=== PATIENT | female | born 1950 | race Caucasian/White ===

== ENCOUNTER → 2016-09-27 | Outpatient (CLI) | payer OTHER ==
[2015-09-07 15:26] VITALS: BP 126/65
[~2016-09-27] MED LIST: DOXY100T PO; GLIM2TAB2 PO; IRBE1TAB PO; METF500T4 PO; METO25TA4 PO; SIMV20TA3 PO
[2016-09-27 10:05] LABS: ALBUMIN 3.8 g/dL (3.4-5.0); CALCIUM 8.9 mg/dL (8.5-10.1); CHOLESTEROL/HDL RATIO 4.5; GFR 55.8; POTASSIUM 4.2 mmol/L (3.5-5.1); TOTAL BILIRUBIN 0.5 mg/dL (0.2-1.0); TOTAL PROTEIN 7.7 g/dL (6.4-8.2)
== END | disposition home or self-care (01) ==
LOC: LAB 09:01
PROVIDERS: ATTEND Internal Medicine
DX: I10 Essential (primary) hypertension (principal); E11.9 Type 2 diabetes mellitus without complications; E78.5 Hyperlipidemia, unspecified
CPT/HCPCS: 36415; 80053; 80061; 82550; 83036; 84443

== ENCOUNTER → 2016-09-29 | Outpatient (CLI) | payer OTHER ==
[2015-09-07 15:26] VITALS: BP 126/65
--- NOTE | 2016-09-29 08:53 | RAD ---
DATE: 09/29/2016 EXAM: DIGITAL SCREEN BILAT W/CAD HISTORY: Routine screening COMPARISON: 08/04/2015 This study was interpreted with the benefit of Computerized Aided Detection (CAD). FINDINGS: The breasts are predominantly fatty replaced. No new or enlarging breast densities are seen. Minimal benign type calcification is present. No suspicious microcalcifications have developed. IMPRESSION: Stable mammograms without evidence of malignancy. BI-RADS CATEGORY: 1 NEGATIVE RECOMMENDED FOLLOW-UP: 12M 12 MONTH FOLLOW-UP PQRS compliance statement: Patient information was entered into a reminder system with a target due date for the next mammogram. Mammography is a sensitive method for finding small breast cancers, but it does not detect them all and is not a substitute for careful clinical examination. A negative mammogram does not negate a clinically suspicious finding and should not result in delay in biopsying a clinically suspicious abnormality. "Our facility is accredited by the [employer] Mammography Program."
== END | disposition home or self-care (01) ==
LOC: MAMMO 08:19
PROVIDERS: ATTEND Internal Medicine
DX: Z12.31 Encounter for screening mammogram for malignant neoplasm of breast (principal)
CPT/HCPCS: G0202; 77067

== ENCOUNTER → 2016-09-30 | Outpatient (CLI) | payer OTHER ==
[2015-09-07 15:26] VITALS: BP 126/65
--- NOTE | 2016-09-30 09:26 | KCIC ---
PROCEDURE Bone density. HISTORY Postmenopausal, estrogen deficiency. COMPARISON None. FINDINGS Dual photon densitometry of the lumbar spine and left proximal femur is performed. Bone mineral density values are measured in grams per cm2. Lumbar spine, L1-L4, total bone mineral density 1.358, T-score 2.8, Z-score 4.5. Left total femur bone mineral density 1.097, T-score 1.3, Z-score 2.4. World Health Organization criteria for bone mineral density interpretation classify patient's as normal (T-score at or above -1.0), osteopenic (T-score between -1 and -2.5), or osteoporotic (T-score at or below -2.5). IMPRESSION Normal bone mineral density of the lumbar spine and the left femur. Electronically signed by: Ramirez Cox MD (Sep 30, 2016 09:24:10)
== END | disposition home or self-care (01) ==
LOC: KCIC DEXA 08:45
PROVIDERS: ATTEND Internal Medicine
DX: Z78.0 Asymptomatic menopausal state (principal); E28.39 Other primary ovarian failure
CPT/HCPCS: 77080

== ENCOUNTER → 2017-02-09 | Outpatient (CLI) | payer OTHER ==
[2015-09-07 15:26] VITALS: BP 126/65
[2017-02-09 08:22] LABS: BASO % 1 % (0-3); EOS % 3 % (0-3); HEMATOCRIT 38.4 % (36.0-47.0); HEMOGLOBIN 12.6 g/dL (12.0-15.5); LYMPH # 2.6 x10^3/uL (1.0-4.8); LYMPH % 34 % (24-48); MEAN CORPUSCULAR HEMOGLOBIN 27 pg (25-35); MEAN CORPUSCULAR HGB CONC 33 g/dL (31-37); MEAN CORPUSCULAR VOLUME 84 fL (79-100); MONO % 8 % (0-9); NEUT % 54 % (31-73); PLATELET COUNT 170 x10^3/uL (140-400); RED CELL DISTRIBUTION WIDTH 14.6 % (11.5-14.5); WHITE BLOOD COUNT 7.5 x10^3/uL (4.0-11.0)
[2017-02-09 08:42] LABS: ALBUMIN 3.8 g/dL (3.4-5.0); ALBUMIN/GLOBULIN RATIO 1.2 (1.0-1.7); CALCIUM 8.2 mg/dL (8.5-10.1); CREATININE 0.9 mg/dL (0.6-1.0); POTASSIUM 4.2 mmol/L (3.5-5.1); TOTAL BILIRUBIN 0.6 mg/dL (0.2-1.0); TOTAL PROTEIN 6.9 g/dL (6.4-8.2)
[2017-02-09 08:46] LABS: CHOLESTEROL/HDL RATIO 4.5
[2017-02-10 00:10] LABS: VITAMIN D25(OH)TOTAL 29.2 ng/mL (30.0-100.0)
== END | disposition home or self-care (01) ==
LOC: LAB 08:03
PROVIDERS: ATTEND Internal Medicine
DX: I10 Essential (primary) hypertension (principal); E11.9 Type 2 diabetes mellitus without complications
CPT/HCPCS: 36415; 80053; 80061; 82306; 83036; 84443; 85025

== ENCOUNTER → 2017-02-21 | Outpatient (CLI) | payer OTHER ==
[2015-09-07 15:26] VITALS: BP 126/65
--- NOTE | 2017-02-21 08:48 | RAD ---
APPROVED REPORT Patient Location : OUT-PATIENT Indications venous insufficiency Findings Limited grayscale images of the bilateral greater and lesser saphenous veins do not reveal any eviden ce of thrombus. The right great saphenous vein measures 3.5 mm in the left great saphenous vein measures 6.6 mm. [place] r Doppler and spectral imaging do not reveal any evidence of reflux. The bilateral lesser saphenous v eins do not show any evidence of reflux. Critical Notification Critical Value: No <Conclusion> Negative for reflux in the bilateral greater and lesser saphenous veins
== END | disposition home or self-care (01) ==
LOC: US 08:18
PROVIDERS: ATTEND Internal Medicine Cardiovascular Disease
DX: I87.2 Venous insufficiency (chronic) (peripheral) (principal)
CPT/HCPCS: 93970

== ENCOUNTER → 2017-03-20 | Outpatient (CLI) | payer OTHER ==
[2015-09-07 15:26] VITALS: BP 126/65
--- NOTE | 2017-03-20 13:49 | CARD ---
APPROVED REPORT EXAM: Two-dimensional and M-mode echocardiogram with Doppler and color Doppler. Other Information Quality : Average Rhythm : NSR INDICATION Murmur 2D DIMENSIONS RVDd3.1 (2.9-3.5cm)Left Atrium(2D)3.9 (1.6-4.0cm) IVSd1.3 (0.7-1.1cm)Aortic Root(2D)3.1 (2.0-3.7cm) LVDd4.7 (3.9-5.9cm)LVOT Diameter2.2 (1.8-2.4cm) PWd1.3 (0.7-1.1cm)LVDs2.8 (2.5-4.0cm) FS (%) 30.5 %SV74.4 ml LVEF(%)61.2 (>50%) Aortic Valve AoV Peak Marcell.125.0cm/sAoV VTI23.8cm AO Peak GR.6.3mmHgLVOT VTI 18.17cm AO Mean GR.3mmHg Mitral Valve MV E Kbyplugm66.7cm/sMV E Peak Gr.2mmHg MV DECEL AXVV230bhNR A Pxupzjqk02.6cm/s MV KMD85nxS/A Ratio1.1 MV A Ossbwrvs359ayJMA (PHT)4.07cm2 TDI Lateral E' P. V8.88cm/sMedial E' P. V4.44cm/s E/Lateral E'8.9E/Medial E'17.7 Tricuspid Valve TR P. Ygvwhvai352tx/sRAP SMOUFCJZ6ekEv TR Peak Gr.12nzBfUYIW71oeCh LEFT VENTRICLE The left ventricle is normal size. There is borderline concentric left ventricular hypertrophy. Left ventricle systolic function is normal. The Ejection Fraction is 60-65%. There is normal LV segmental wall motion. The left ventricular diastolic function and filling is normal for age. There is no ventr icular septal defect visualized. RIGHT VENTRICLE The right ventricle is normal size. The right ventricular systolic function is normal. ATRIA The left atrium size is normal. The right atrium size is normal. The interatrial septum is intact wit h no evidence for an atrial septal defect or patent foramen ovale as noted on 2-D or Doppler imaging. AORTIC VALVE The aortic valve is mildly calcified. The aortic valve is trileaflet. Doppler and Color Flow revealed no significant aortic regurgitation. There is no significant aortic valvular stenosis. MITRAL VALVE Mitral annular calcification is mild. There is no mitral valve stenosis. Doppler and Color Flow revea led no mitral valve regurgitation noted. TRICUSPID VALVE The tricuspid valve is normal in structure and function. Doppler and Color Flow revealed trace tricus pid regurgitation. The PA pressure was estimated at 21 mmHg. There is no tricuspid valve stenosis. PULMONIC VALVE The pulmonic valve is not well visualized. Doppler and Color Flow revealed trace pulmonic valvular re gurgitation. There is no pulmonic valvular stenosis. GREAT VESSELS The aortic root is normal in size. The ascending aorta is normal in size. The IVC is normal in size a nd collapses >50% with inspiration. PERICARDIAL EFFUSION There is no evidence of significant pericardial effusion. Critical Notification Critical Value: No <Conclusion> Left ventricle systolic function is normal. The Ejection Fraction is 60-65%. There is normal LV segmental wall motion. Trace tricuspid regurgitation. The PA pressure was estimated at 21 mmHg. There is no evidence of significant pericardial effusion.
== END | disposition home or self-care (01) ==
LOC: ECHO 12:29
PROVIDERS: ATTEND Internal Medicine Cardiovascular Disease
DX: I07.1 Rheumatic tricuspid insufficiency (principal); R01.1 Cardiac murmur, unspecified
CPT/HCPCS: 93306

== ENCOUNTER → 2017-09-26 | Day surgery (SDC) | payer OTHER ==
[~2017-09-26] MED LIST changes: -DOXY100T PO; -GLIM2TAB2 PO; -IRBE1TAB PO; +IV RINGERS,LACTATED 1000ML 1,000 ML IV; +LIDOCAINE 1% PF 2 ML VIAL. ID; -METF500T4 PO; -METO25TA4 PO; +MIDAZOLAM HCL/PF 2 MG/2 ML VIAL. IV; +MORPHINE SULFATE 2 MG/ML DISP.SYRIN. IV; +ONDANSETRON PF 4 MG/2 ML VIAL. IV; +PROCHLORPERAZINE 10 MG/2 ML VIAL. IV; +PROPOFOL 20 ML IV; -SIMV20TA3 PO; +fentaNYL PF VIAL 100 MCG/2 ML VIAL IV
[2017-09-26 08:10] LABS: POC GLUCOSE 124 mg/dL (70-99)
[2017-09-26] MEDS: IV RINGERS,LACTATED 1000ML 1,000 ML IV (08:12)
== END | disposition home or self-care (01) ==
LOC: ENDOS 07:43
DX: Z12.11 Encounter for screening for malignant neoplasm of colon (principal); K63.5 Polyp of colon; K63.3 Ulcer of intestine; I10 Essential (primary) hypertension; E11.9 Type 2 diabetes mellitus without complications; E78.5 Hyperlipidemia, unspecified; Z90.710 Acquired absence of both cervix and uterus; G47.30 Sleep apnea, unspecified; Z79.84 Long term (current) use of oral hypoglycemic drugs; Z79.899 Other long term (current) drug therapy; Z88.9 Allergy status to unspecified drugs, medicaments and biological substances
CPT/HCPCS: 45385; 82962; 88305; J2704

== ENCOUNTER → 2018-01-20 | Outpatient (CLI) | payer OTHER | END | disposition home or self-care (01) | LOC: MAMMO 08:48 | DX: Z12.31 Encounter for screening mammogram for malignant neoplasm of breast (principal) | CPT/HCPCS: 77063; 77067 ==

== ENCOUNTER → 2018-01-24 | Outpatient (CLI) | payer OTHER ==
[2018-01-24] MEDS: ZOLPIDEM 5 MG TABLET. PO (23:00)
== END | disposition home or self-care (01) ==
LOC: RT 18:21
DX: G47.33 Obstructive sleep apnea (adult) (pediatric) (principal); E11.9 Type 2 diabetes mellitus without complications; I10 Essential (primary) hypertension; E78.5 Hyperlipidemia, unspecified
CPT/HCPCS: 95810

== ENCOUNTER 2018-11-08 11:29 | Inpatient (IN) | payer OTHER ==
[2018-11-08] VITALS (12 sets, daily range): BP systolic 149–178; BP diastolic 57–79
[~2018-11-08] VITALS: Ht 157.5 cm; Wt 105.8 kg
[~2018-11-08 11:29] MED LIST changes: +DOXY100T PO; +GLIM2TAB2 PO; +IRBE1TAB PO; -IV RINGERS,LACTATED 1000ML 1,000 ML IV; -LIDOCAINE 1% PF 2 ML VIAL. ID; +METF500T16 PO; +METO25TA4 PO; -MIDAZOLAM HCL/PF 2 MG/2 ML VIAL. IV; -MORPHINE SULFATE 2 MG/ML DISP.SYRIN. IV; -ONDANSETRON PF 4 MG/2 ML VIAL. IV; -PROCHLORPERAZINE 10 MG/2 ML VIAL. IV; -PROPOFOL 20 ML IV; +SIMV20TA3 PO; -fentaNYL PF VIAL 100 MCG/2 ML VIAL IV
[2018-11-08] MEDS ORDERED: ASPIRIN 325 MG TABLET PO ONE (11:45)
[2018-11-08] MEDS ORDERED: IV NORMAL SALINE 1000ML BAG 1,000 ML IV ONE (11:45)
[2018-11-08] MEDS ORDERED: ATROPINE 0.5 MG/5 ML DISP.SYRINGE. IV ONE ×2 (11:45→12:00)
--- NOTE | 2018-11-08 11:55 | EKG ---
[facility] [address] [place] [address] Test Date: 2018-11-08 Test Time: 11:46:26 Pat Name: ELOISE PATEL Department: Room: Gender: F Clinical Nursing Instructor: : 1950 Requested By: IZABELA SHERIDAN Order Number: [id number] Reading MD: Eliceo Loco Measurements Intervals [place] Rate: 35 P: 90 MD: 108 QRS: -64 QRSD: 132 T: -92 QT: 630 QTc: 485 Interpretive Statements SINUS BRADYCARDIA RIGHT BUNDLE BRANCH BLOCK ABNORMAL LEFT AXIS DEVIATION ABNORMAL ECG Electronically Signed On 11-30-2018 12:18:52 CDT by Eliceo Loco
[2018-11-08 11:57] LABS: BASO % 1 % (0-3); EOS # 0.1 x10^3/uL (0.0-0.7); EOS % 2 % (0-3); HEMATOCRIT 40.9 % (36.0-47.0); LYMPH # 2.3 x10^3/uL (1.0-4.8); LYMPH % 29 % (24-48); MEAN CORPUSCULAR HEMOGLOBIN 27 pg (25-35); MEAN CORPUSCULAR HGB CONC 32 g/dL (31-37); MEAN CORPUSCULAR VOLUME 84 fL (79-100); MONO # 0.7 x10^3/uL (0.0-1.1); MONO % 9 % (0-9); NEUT # 4.9 x10^3uL (1.8-7.7); NEUT % 60 % (31-73); PLATELET COUNT 200 x10^3/uL (140-400); RED BLOOD COUNT 4.87 x10^6/uL (3.50-5.40); RED CELL DISTRIBUTION WIDTH 14.7 % (11.5-14.5); WHITE BLOOD COUNT 8.1 x10^3/uL (4.0-11.0)
[2018-11-08 12:06] LABS: CREATININE 1.1 mg/dL (0.6-1.0); GFR 49.7; POTASSIUM 4.7 mmol/L (3.5-5.1)
[2018-11-08 12:08] LABS: PROTHROMBIN TIME PATIENT 15.4 SEC (11.7-14.0)
--- NOTE | 2018-11-08 12:11 | RAD ---
Single view of the chest. 11/08/2018 11:52 AM Indication: Shortness of breath x1 week Comparison: None Findings: There is no focal consolidation. There is no pleural effusion or pneumothorax. There is borderline cardiomegaly. No acute osseous abnormalities are seen. Impression: Borderline cardiomegaly. Otherwise, no evidence of acute cardiopulmonary process. Electronically signed by: Britton Arriola MD (11/08/2018 12:08 PM) [facility]
[2018-11-08 12:12] LABS: ALBUMIN 3.7 g/dL (3.4-5.0); ALBUMIN/GLOBULIN RATIO 1.2 (1.0-1.7); MAGNESIUM 1.8 mg/dL (1.8-2.4); TOTAL PROTEIN 6.9 g/dL (6.4-8.2)
--- NOTE | 2018-11-08 12:20 | PHYS DOC ---
Past Medical History Past Medical History: Diabetes-Type II, High Cholesterol, Hypertension Past Surgical History: Hysterectomy Alcohol Use: None Drug Use: None Adult General Chief Complaint Chief Complaint: SHORTNESS OF BREATH HPI HPI Patient is a 68 year old [f__sex] who presents with [] Review of Systems Review of Systems Constitutional: Denies fever or chills [] Eyes: Denies change in visual acuity, redness, or eye pain [] HENT: Denies nasal congestion or sore throat [] Respiratory: Denies cough or shortness of breath [] Cardiovascular: No additional information not addressed in HPI [] GI: Denies abdominal pain, nausea, vomiting, bloody stools or diarrhea [] : Denies dysuria or hematuria [] Musculoskeletal: Denies back pain or joint pain [] Integument: Denies rash or skin lesions [] Neurologic: Denies headache, focal weakness or sensory changes [] Endocrine: Denies polyuria or polydipsia [] All other systems were reviewed and found to be within normal limits, except as documented in this note. Current Medications Current Medications Current Medications Medications (Trade) Dose Ordered Sig/Jaya Start Time Stop Time Status Last Admin Dose Admin Aspirin (Shawanda Aspirin) 325 mg 1X ONCE 11/08/18 11:45 11/08/18 11:49 DC 11/08/18 12:18 325 MG Atropine Sulfate (ATROPINE 0.5mg SYRINGE) 0.5 mg 1X ONCE 11/08/18 12:00 11/08/18 12:01 DC 11/08/18 11:48 0.5 MG Bacitracin 85021 unit/Sodium Chloride 250 ml @ 250 mls/hr 1X ONCE 11/08/18 13:30 11/08/18 14:29 Cefazolin Sodium/ Dextrose 50 ml @ 100 mls/hr 1X ONCE 11/08/18 13:00 11/08/18 13:29 UNV Hydralazine HCl (Apresoline Inj) 10 mg PRN Q4HRS PRN 11/08/18 13:15 Sodium Chloride 1,000 ml @ 1,000 mls/hr 1X ONCE 11/08/18 11:45 11/08/18 12:44 DC 11/08/18 12:19 1,000 MLS/HR Allergies Allergies Allergies Coded Allergies Type Severity Reaction Last Updated Verified iodine Allergy Intermediate Rash 09/26/17 Yes Physical Exam Physical Exam Constitutional: Well developed, well nourished, no acute distress, non-toxic appearance. [] HENT: Normocephalic, atraumatic, bilateral external ears normal, oropharynx moist, no oral exudates, nose normal. [] Eyes: PERRLA, EOMI, conjunctiva normal, no discharge. [] Neck: Normal range of motion, no tenderness, supple, no stridor. [] Cardiovascular:Heart rate regular rhythm, no murmur [] Lungs & Thorax: Bilateral breath sounds clear to auscultation [] Abdomen: Bowel sounds normal, soft, no tenderness, no masses, no pulsatile masses. [] Skin: Warm, dry, no erythema, no rash. [] Back: No tenderness, no CVA tenderness. [] Extremities: No tenderness, no cyanosis, no clubbing, ROM intact, no edema. [] Neurologic: Alert and oriented X 3, normal motor function, normal sensory function, no focal deficits noted. [] Psychologic: Affect normal, judgement normal, mood normal. [] Current Patient Data Vital Signs Vital Signs Date Time Temp Pulse Resp B/P (MAP) Pulse Ox O2 Delivery O2 Flow Rate FiO2 11/08/18 12:39 38 151/43 (79) 99 Room Air 11/08/18 11:35 97.9 16 97.9 Lab Values Laboratory Tests Test 11/08/18 11:41 White Blood Count 8.1 x10^3/uL (4.0-11.0) Red Blood Count 4.87 x10^6/uL (3.50-5.40) Hemoglobin 13.0 g/dL (12.0-15.5) Hematocrit 40.9 % (36.0-47.0) Mean Corpuscular Volume 84 fL (79-100) Mean Corpuscular Hemoglobin 27 pg (25-35) Mean Corpuscular Hemoglobin Concent 32 g/dL (31-37) Red Cell Distribution Width 14.7 % (11.5-14.5) H Platelet Count 200 x10^3/uL (140-400) Neutrophils (%) (Auto) 60 % (31-73) Lymphocytes (%) (Auto) 29 % (24-48) Monocytes (%) (Auto) 9 % (0-9) Eosinophils (%) (Auto) 2 % (0-3) Basophils (%) (Auto) 1 % (0-3) Neutrophils # (Auto) 4.9 x10^3uL (1.8-7.7) Lymphocytes # (Auto) 2.3 x10^3/uL (1.0-4.8) Monocytes # (Auto) 0.7 x10^3/uL (0.0-1.1) Eosinophils # (Auto) 0.1 x10^3/uL (0.0-0.7) Basophils # (Auto) 0.0 x10^3/uL (0.0-0.2) Prothrombin Time 15.4 SEC (11.7-14.0) H Prothrombin Time INR 1.3 (0.8-1.1) H Sodium Level 142 mmol/L (136-145) Potassium Level 4.7 mmol/L (3.5-5.1) Chloride Level 105 mmol/L (98-107) Carbon Dioxide Level 24 mmol/L (21-32) Anion Gap 13 (6-14) Blood Urea Nitrogen 23 mg/dL (7-20) H Creatinine 1.1 mg/dL (0.6-1.0) H Estimated GFR (Cockcroft-Gault) 49.7 BUN/Creatinine Ratio 21 (6-20) H Glucose Level 86 mg/dL (70-99) Calcium Level 9.0 mg/dL (8.5-10.1) Magnesium Level 1.8 mg/dL (1.8-2.4) Total Bilirubin 1.0 mg/dL (0.2-1.0) Aspartate Amino Transferase (AST) 33 U/L (15-37) Alanine Aminotransferase (ALT) 71 U/L (14-59) H Alkaline Phosphatase 72 U/L (46-116) Creatine Kinase 268 U/L (26-192) H Creatine Kinase MB (Mass) 8.1 ng/mL (0.0-3.6) H Creatine Kinase MB Relative Index 3.0 % (0-4) Troponin I Quantitative 0.044 ng/mL (0.000-0.055) AI-Jaa-N-Type Natriuretic Peptide 2097 pg/mL (0-124) H Total Protein 6.9 g/dL (6.4-8.2) Albumin 3.7 g/dL (3.4-5.0) Albumin/Globulin Ratio 1.2 (1.0-1.7) Lipase 115 U/L (73-393) Thyroid Stimulating Hormone (TSH) 2.150 uIU/mL (0.358-3.74) Laboratory Tests 11/08/18 11:41 Laboratory Tests 11/08/18 11:41 EKG EKG @1139 Third degree heart block at 33bpm, NO ST elevation @1146 Third degree heart block at 35bpm, NO ST elevation, PVC, otherwise without significant change from prior. @1222 Third degree heart block at 39bpm, NO ST elevation, without significant change from prior Radiology/Procedures Radiology/Procedures PROCEDURE: PORTABLE CHEST 1V Single view of the chest. 11/08/2018 11:52 AM Indication: Shortness of breath x1 week Comparison: None Findings: There is no focal consolidation. There is no pleural effusion or pneumothorax. There is borderline cardiomegaly. No acute osseous abnormalities are seen. Impression: Borderline cardiomegaly. Otherwise, no evidence of acute cardiopulmonary process. Electronically signed by: Britton Arriola MD (11/08/2018 12:08 PM) [facility] Course & Med Decision Making Course & Med Decision Making Pertinent Labs and Imaging studies reviewed. (See chart for details) [] Dragon Disclaimer Dragon Disclaimer This electronic medical record was generated, in whole or in part, using a voice recognition dictation system. Departure Departure Impression: Primary Impression: Complete heart block Additional Impression: Acute renal insufficiency Disposition: ADMITTED INPATIENT Admitting Physician: Robin Ng Condition: GUARDED Referrals: ROBIN NG MD (PCP) Critical Care Time Critical care time was 30 minutes which includes time at bedside, spent in discussion of patient's care with specialists and/or family members, with interpretation of laboratory and/or radiological studies and is exclusive of procedures. Problem Qualifiers ROBIN SHERIDAN DO November 08, 2018 12:20
--- NOTE | 2018-11-08 12:26 | PDOC2 ---
SHANTANU CANCHOLA WEATHERIZATION COORDINATOR 11/08/18 1225: CARDIAC CONSULT DATE OF CONSULT Date of Consult DATE: 11/08/18 TIME: 12:18 REASON FOR CONSULT Reason for Consult: Bradycardia REFERRING PHYSICIAN Referring Physician: Dr. Yi SOURCE Source: Chart review, Patient HISTORY OF PRESENT ILLNESS HISTORY OF PRESENT ILLNESS This is a 68 yo female who presented secondary to low heart rate and hypertension. Patient reports feeling kind of "funny". Not specifically light headed or dizzy. But doesn't feel "right". Normally on metoprolol at home, but has been out for the last month. Decided to check her blood pressure and noted her heart rate to be really low and he blood pressure to be elevated so she came into the ED for further evaluation and treatment. EKG notable for high grade AV block with HR in the 30's. Atropine was administered in ED. Patient does report feeling occasionally dizzy over the last 2 week of so and occasional heaviness in her central chest for the last week. No associated SOA, palpitations, diaphoresis, or nausea/vomiting. Has been more fatigued recently. PAST MEDICAL HISTORY Cardiovascular: HTN, Hyperlipidemia, Other (RBBB) Pulmonary: Other (ZAIDA- CPAP) CENTRAL NERVOUS SYSTEM: Other (no pertinent histroy ) GI: No pertinent hx Heme/Onc: No pertinent hx Hepatobiliary: Other (fatty liver ) Psych: No pertinent hx Musculoskeletal: Osteoarthritis Rheumatologic: No pertinent hx Infectious disease: No pertinent hx Endocrine: Diabetes Dermatology: No pertinent hx PAST SURGICAL HISTORY Past Surgical History: Hysterectomy, Other (bilateral carpal tunnel ) FAMILY HISTORY Family History: Heart Disease, Hypertension SOCIAL HISTORY Smoke: No ALCOHOL: none Drugs: None Lives: with Family CURRENT MEDICATIONS CURRENT MEDICATIONS Current Medications Medications (Trade) Dose Ordered Sig/Jaya Route PRN Reason Start Time Stop Time Status Last Admin Dose Admin Atropine Sulfate (ATROPINE 0.5mg SYRINGE) 0.5 mg 1X ONCE IV 11/08/18 11:45 11/08/18 11:49 DC 11/08/18 11:43 Atropine Sulfate (ATROPINE 0.5mg SYRINGE) 0.5 mg 1X ONCE IV 11/08/18 12:00 11/08/18 12:01 DC 11/08/18 11:48 ALLERGIES ALLERGIES: Coded Allergies: iodine (Verified Allergy, Intermediate, Rash, 09/26/17) ROS Review of System 14 point ROS conducted with pertinent positives noted above in HPI. PHYSICAL EXAM General: Alert, Oriented X3, Cooperative, No acute distress HEENT: Atraumatic, Mucous membr. moist/pink Lungs: Clear to auscultation, Normal air movement Heart: Normal S1, Normal S2, No murmurs, Other (guy- HR near 40) Abdomen: No tenderness Extremities: Normal pulses, Other (trace bilateral LE edema ) Skin: No significant lesion Neuro: Normal speech, Sensation intact Psych/Mental Status: Mental status NL, Mood NL MUSCULOSKELETAL: No deformity VITALS VITALS Vital Signs Date Time Temp Pulse Resp B/P (MAP) Pulse Ox O2 Delivery O2 Flow Rate FiO2 11/08/18 11:35 97.9 33 16 221/59 (112) 96 Room Air 97.9 LABS Lab: Laboratory Tests Test 11/08/18 11:41 White Blood Count 8.1 x10^3/uL (4.0-11.0) Red Blood Count 4.87 x10^6/uL (3.50-5.40) Hemoglobin 13.0 g/dL (12.0-15.5) Hematocrit 40.9 % (36.0-47.0) Mean Corpuscular Volume 84 fL (79-100) Mean Corpuscular Hemoglobin 27 pg (25-35) Mean Corpuscular Hemoglobin Concent 32 g/dL (31-37) Red Cell Distribution Width 14.7 % (11.5-14.5) Platelet Count 200 x10^3/uL (140-400) Neutrophils (%) (Auto) 60 % (31-73) Lymphocytes (%) (Auto) 29 % (24-48) Monocytes (%) (Auto) 9 % (0-9) Eosinophils (%) (Auto) 2 % (0-3) Basophils (%) (Auto) 1 % (0-3) Neutrophils # (Auto) 4.9 x10^3uL (1.8-7.7) Lymphocytes # (Auto) 2.3 x10^3/uL (1.0-4.8) Monocytes # (Auto) 0.7 x10^3/uL (0.0-1.1) Eosinophils # (Auto) 0.1 x10^3/uL (0.0-0.7) Basophils # (Auto) 0.0 x10^3/uL (0.0-0.2) Prothrombin Time 15.4 SEC (11.7-14.0) Prothromb Time International Ratio 1.3 (0.8-1.1) Sodium Level 142 mmol/L (136-145) Potassium Level 4.7 mmol/L (3.5-5.1) Chloride Level 105 mmol/L (98-107) Carbon Dioxide Level 24 mmol/L (21-32) Anion Gap 13 (6-14) Blood Urea Nitrogen 23 mg/dL (7-20) Creatinine 1.1 mg/dL (0.6-1.0) Estimated GFR (Cockcroft-Gault) 49.7 BUN/Creatinine Ratio 21 (6-20) Glucose Level 86 mg/dL (70-99) Calcium Level 9.0 mg/dL (8.5-10.1) Magnesium Level 1.8 mg/dL (1.8-2.4) Total Bilirubin 1.0 mg/dL (0.2-1.0) Aspartate Amino Transf (AST/SGOT) 33 U/L (15-37) Alanine Aminotransferase (ALT/SGPT) 71 U/L (14-59) Alkaline Phosphatase 72 U/L (46-116) Troponin I Quantitative 0.044 ng/mL (0.000-0.055) Total Protein 6.9 g/dL (6.4-8.2) Albumin 3.7 g/dL (3.4-5.0) Albumin/Globulin Ratio 1.2 (1.0-1.7) Lipase 115 U/L (73-393) ECHOCARDIOGRAM ECHOCARDIOGRAM <Conclusion> Left ventricle systolic function is normal. The Ejection Fraction is 60-65%. There is normal LV segmental wall motion. Trace tricuspid regurgitation. The PA pressure was estimated at 21 mmHg. There is no evidence of significant pericardial effusion. DATE: 03/20/17 1348 STRESS TEST STRESS TEST Conclusion 1. Regadenoson cardioisotope stress test showed small to moderate amount of ap ical wall ischemia. 2. Normal left ventricular systolic function with ejection fraction calculated at 68%. 3. Low to intermediate risk for cardiac events. DATE: 09/18/15 1745 ASSESSMENT/PLAN ASSESSMENT/PLAN 1. Bradycardia with high-grade AV block 2. Malignant hypertension 3. Hyperlipidemia; statin 5. Diabetes, II 6. ZAIDA; home CPAP Recommendations Lipid panel, TSH Echo to assess LV systolic function Resume home antiHTN therapy Hold metoprolol/AV jaimee blocking agents for now Hydralazine IV PRN Keep NPO Recommend pacemaker implantation for high-grade block. R/b/a discussed with patient and she is agreeable. Will proceed with today. Outpatient ischemic evaluation given risk factors RAÚL MCCLAIN MD 11/08/18 1322: CARDIAC CONSULT ASSESSMENT/PLAN ASSESSMENT/PLAN Pt. seen and examined. 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 68 y.o female well known to our office. She has HTN, has previously been on beta blockers, but off for last one month presenting with fatigue and dyspnea in the setting of high grade AVB. Suspect trigger is infection but no other obvious etiology Given such high grade block without any meds on board, would need pacemaker. r/b/a discussed. She wishes to proceed. SHANTANU CANCHOLA APRN November 08, 2018 12:25 RAÚL MCCLAIN MD November 08, 2018 13:22
[2018-11-08] MEDS ORDERED: ATROPINE 0.5 MG/5 ML DISP.SYRINGE. ONE (12:30)
[2018-11-08] MEDS ORDERED: hydrALAZINE 20 MG/ML VIAL. IVP ONE (12:30)
--- NOTE | 2018-11-08 12:55 | EKG ---
[facility] [address] [place] [address] Test Date: 2018-11-08 Test Time: 12:22:46 Pat Name: ELOISE PATEL Department: Room: Gender: F Head Of Merchandise Buying: : 1950 Requested By: IZABELA SHERIDAN Order Number: [id number] Reading MD: Eliceo Loco Measurements Intervals [place] Rate: 39 P: 0 FL: 250 QRS: -76 QRSD: 148 T: 25 QT: 592 QTc: 481 Interpretive Statements SINUS BRADYCARDIA PROLONGED FL INTERVAL ABNORMAL LEFT AXIS DEVIATION RIGHT BUNDLE BRANCH BLOCK LEFT ANTERIOR FASCICULAR BLOCK ABNORMAL ECG Electronically Signed On 11-30-2018 12:19:23 CDT by Eliceo Loco
[2018-11-08] MEDS ORDERED: MIDAZOLAM HCL/PF 5 MG/5 ML VIAL. ONE (13:09)
[2018-11-08] MEDS ORDERED: fentaNYL PF VIAL 100 MCG/2 ML VIAL ONE (13:09)
[2018-11-08] MEDS ORDERED: DEXTROSE 50% 25 GM / 50ML DISP.SYRIN. IV PRN ×2 (13:15→16:45)
[2018-11-08] MEDS ORDERED: hydrALAZINE 20 MG/ML VIAL. IVP PRN (13:15)
--- NOTE | 2018-11-08 13:19 | CARD ---
MR#: [id number] Date of Study: 11/08/2018 Ordering Physician: AKI SINGLETON, Referring Physician: IZABELA SHERIDAN Tech: Velma García VALERY APPROVED REPORT EXAM: Two-dimensional and M-mode echocardiogram with Doppler and color Doppler. Other Information Quality : Good Rhythm : Bradycardia INDICATION Bradycardia, 3rd Degree Heart Block, Pre-Op Pacemaker Implant 2D DIMENSIONS RVDd3.4 (2.9-3.5cm)Left Atrium(2D)4.3 (1.6-4.0cm) IVSd0.9 (0.7-1.1cm)Aortic Root(2D)3.0 (2.0-3.7cm) LVDd5.3 (3.9-5.9cm)LVOT Diameter2.1 (1.8-2.4cm) PWd0.8 (0.7-1.1cm)LVDs3.5 (2.5-4.0cm) FS (%) 30.0 %SV84.1 ml LVEF(%)60.0 (>50%) Aortic Valve AoV Peak Marcell.207.7cm/sAoV VTI47.1cm AO Peak GR.17.3mmHgLVOT VTI 31.55cm AO Mean GR.8mmHgAVA (VTI)2.33cm2 Mitral Valve MV E Ksdneizb374.1cm/sMV DECEL RTWY228zp MV A Himiuetm59.5cm/sE/A Ratio1.2 TDI Lateral E' P. V4.70cm/sMedial E' P. V4.25cm/s E/Lateral E'23.2E/Medial E'25.7 Tricuspid Valve TR P. Ewimfztk486mc/sRAP KBWUYUUA9luGz TR Peak Gr.81svTkHXSB96efBu Pulmonary Vein S1 Ourxwvzg96.0cm/sS2 Iouumxej261.81cm/s D2 Zzxvpmaq972.8cm/s LEFT VENTRICLE The left ventricle is normal size. There is normal left ventricular wall thickness. The left ventricu lar systolic function is normal and the ejection fraction is within normal range. The Ejection Fracti on is 55-60%. Septal motion consistent with conduction abnormality. Transmitral Doppler flow pattern is Grade II-pseudonormal filling dynamics. RIGHT VENTRICLE The right ventricle is normal size. The right ventricular systolic function is normal. ATRIA The left atrium is mildly dilated. The right atrium size is normal. The interatrial septum is intact with no evidence for an atrial septal defect or patent foramen ovale as noted on 2-D or Doppler imagi ng. AORTIC VALVE The aortic valve is calcified but opens well. Doppler and Color Flow revealed no significant aortic r egurgitation. There is no significant aortic valvular stenosis. MITRAL VALVE The mitral valve is calcified but opens well. There is no evidence of mitral valve prolapse. There is no mitral valve stenosis. Doppler and Color-flow revealed trace mitral regurgitation. TRICUSPID VALVE The tricuspid valve is normal in structure and function. Doppler and Color Flow revealed trace to mil d tricuspid regurgitation. There is moderate pulmonary hypertension. The PA pressure was estimated at 51 mmHg. There is no tricuspid valve stenosis. PULMONIC VALVE Doppler and Color Flow revealed trace pulmonic valvular regurgitation. There is no pulmonic valvular stenosis. GREAT VESSELS The aortic root is normal in size. The ascending aorta is normal in size. The IVC is normal in size a nd collapses <50% with inspiration. PERICARDIAL EFFUSION There is no evidence of significant pericardial effusion. Critical Notification Critical Value: No <Conclusion> The left ventricular systolic function is normal and the ejection fraction is within normal range. Th e Ejection Fraction is 55-60%. Septal motion consistent with conduction abnormality. Transmitral Doppler flow pattern is Grade II-pseudonormal filling dynamics. Doppler and Color Flow revealed trace to mild tricuspid regurgitation. There is moderate pulmonary hy pertension. The PA pressure was estimated at 51 mmHg. Signed by : Garland Victoria, Electronically Approved : 11/08/2018 13:18:42
--- NOTE | 2018-11-08 13:23 | PDOC ---
MODERATE SEDATION ASSESSMENT RISKS/ALTERNATIVES Risks/Alternatives Risks and alternatives of this type of sedation and procedure discussed with: RISK/ALTERNATIVES: Patient H & P ON CHART H & P H & P on chart and reviewed for co-morbid conditions and appropriate labs. H&P ON CHART: Yes STATUS PREG STATUS ASSESSED: N/A MEDS/ALLERGIES REVIEWED Meds/Allergies Reviewed Medications and Allergies including time and route of recently administered narcotics and sedatives. MEDS/ALLERGIES REVIEWED: Yes ASA RATING ASA RATING: II AIRWAY ASSESSMENT Airway Assessment Airway patency, oral function limitations, presence of caps, crowns, dentures, partials, and ability to extend neck assessed. AIRWAY ASSESSMENT: Yes MALLAMPATI SCORE MALLAMPATI SCORE: II PRE-SEDATION ASSESSMENT PRE-SEDATION ASSESSMENT: Yes RAÚL MCCLAIN MD November 08, 2018 13:22
[2018-11-08] MEDS ORDERED: BACITRACIN 50,000 UNIT in IV NORMAL SALINE 250ML 250 ML IRR ONE (13:30)
--- NOTE | 2018-11-08 13:31 | EKG ---
[facility] [address] [place] [address] Test Date: 2018-11-08 Test Time: 11:39:30 Pat Name: ELOISE PATEL Department: Room: Gender: F [employer] Operator Helper: : [id number] Requested By: IZABELA SHERIDAN Order Number: [id number] Reading MD: Eliceo Loco Measurements Intervals Crawford Rate: 33 P: [place]: QRS: -64 QRSD: 142 T: 103 QT: 586 QTc: 437 Interpretive Statements SINUS BRADYCARDIA RIGHT BUNDLE BRANCH BLOCK ABNORMAL ECG Electronically Signed On 11-30-2018 12:18:23 CDT by Eliceo Loco
[2018-11-08] MEDS ORDERED: LIDOCAINE 2%/EPI 1:100,000 20 ML VIAL. ONE (13:32)
[2018-11-08] MEDS ORDERED: methylPREDNISolone SOD SUCC PF 125 MG/2 ML VIAL. ONE (13:32)
[2018-11-08 13:50] LABS: CHOLESTEROL/HDL RATIO 3.9
[2018-11-08] MEDS ORDERED: fentaNYL PF VIAL 100 MCG/2 ML VIAL IV ONE (14:30)
[2018-11-08] MEDS ORDERED: MIDAZOLAM HCL/PF 5 MG/5 ML VIAL. IV ONE (14:30)
[2018-11-08] MEDS ORDERED: LIDOCAINE 2%/EPI 1:100,000 20 ML VIAL. IJ ONE (14:30)
[2018-11-08] MEDS ORDERED: methylPREDNISolone SOD SUCC PF 125 MG/2 ML VIAL. IV ONE (14:30)
[2018-11-08] MEDS ORDERED: ONDANSETRON PF 4 MG/2 ML VIAL. IV PRN (15:15)
[2018-11-08] MEDS ORDERED: NO ANTICOAGULANT THERAPY. MC PRN (15:15)
[2018-11-08] MEDS ORDERED: oxyCODONE/APAP 5/325 1 TAB TABLET PO PRN (15:15)
--- NOTE | 2018-11-08 16:29 | RAD ---
Portable chest, 11/08/2018, 4:10 PM: HISTORY: Post pacemaker insertion Comparison is made to the study of earlier the same day. A left-sided transvenous pacemaker has been inserted with the tip of one lead projected over the right ventricle while the tip of the other lead is projected over the superior aspect of the right atrium. The heart is mildly enlarged. The pulmonary vascularity appears congested. No pulmonary infiltrate is seen. There is no evidence of pneumothorax or pleural fluid. IMPRESSION: 1. Interval insertion of a left-sided transvenous pacemaker. 2. Cardiomegaly with mild vascular congestion. Electronically signed by: Arthur Whaley MD (11/08/2018 4:27 PM) [facility]
--- NOTE | 2018-11-08 16:30 | NUR ---
The patient, ELOISE PATEL, 68 y/o, F admitted by IZABELA MORA MD, was given written information regarding hospital policies, unit procedures and contact persons. Valuables were checked.
--- NOTE | 2018-11-08 16:41 | CARD ---
MR#: [id number] Date of Study: 11/08/2018 Ordering Physician: SHANTANU CANCHOLA, Referring Physician: IZABELA MORA Tech: Melissa García RT (R) APPROVED REPORT HISTORY The Patient is a 68 year-old female with a history of high grade av block with dyspnea PROCEDURES Insertion Dual Chamber Pacemaker 30 mL of 2% lidocaine was infiltrated into the skin and subcutaneous tissues for local anesthesia. A n incision was made over the left infraclavicular fossa and using blunt dissection and cautery a pock et was created. Venous access was obtained in the left subclavian vein and 6 Russian sheaths were ins erted. Subsequently, a St Eric bipolar active fixation right ventricular lead modelTendril STS 2088TC/52 cm, SN [id number] was advanced under fluoroscopic guidance and the tip was positioned in the right ventri cular apex. Following this, a St. Eric bipolar active fixation right atrial lead model Tendril 2088 TC/52 cm, SN [id number] was placed in the right atrial appendage under fluoroscopy guidance. The lead s were secured into place and were attached to a St. Eric dual-chamber permanent pacemaker generator model Assurity MRI 2272, SN [id number]. This was placed in the pocket that was subsequently closed in 3 layers. Hemostasis was secured. At the end of procedure, the right ventricular lead showed sensing amplitude of 8.8 mV, impedance of 660 ohms and a threshold of 0.75volts at 0.4 ms. The right atrial lead showed a sensing amplitude of 1.8 millivolts, impedance of 430 ohms and a threshold of 1 volt at 0.4 ms. The right atrial lead cale eared to be in a good position with excellent attachment and therefore, due to acceptable thresholds and sensitivities, further intervention was deferred. Patient tolerated the procedure well. There w ere no immediate complications. Settings: DDD, 60-130. CONSCIOUS SEDATION AGENTS Moderate sedation:83 minutes Fluoro time:9.7 minutes Dose:155 Gycm2 CONCLUSION 1. Successful dual chamber St. Eric pacemaker insertion for symptomatic high grade aVB/CHB Signed by : Tamir Curryally Approved : 11/08/2018 16:40:34
[2018-11-08] MEDS ORDERED: INSULIN LISPRO 300 UNITS/3 ML INSULN.PEN. SQ SCH ×2 (17:00)
[2018-11-08] MEDS ORDERED: HYDROCHLOROTHIAZIDE PO SCH (21:00)
[2018-11-08] MEDS ORDERED: SIMVASTATIN 20 MG TABLET PO SCH (21:00)
[2018-11-08] MEDS: INSULIN LISPRO 300 UNITS/3 ML INSULN.PEN. SQ SCH (21:00)
[2018-11-08] MEDS ORDERED: IRBESARTAN PO SCH (21:00)
[2018-11-09 03:00] VITALS: BP 162/71
[2018-11-09 05:35] LABS: BASO % 0 % (0-3); EOS % 0 % (0-3); HEMATOCRIT 36.3 % (36.0-47.0); HEMOGLOBIN 12.1 g/dL (12.0-15.5); LYMPH # 0.8 x10^3/uL (1.0-4.8); LYMPH % 9 % (24-48); MEAN CORPUSCULAR HEMOGLOBIN 28 pg (25-35); MEAN CORPUSCULAR HGB CONC 33 g/dL (31-37); MEAN CORPUSCULAR VOLUME 83 fL (79-100); MONO # 0.2 x10^3/uL (0.0-1.1); MONO % 3 % (0-9); NEUT # 7.6 x10^3uL (1.8-7.7); NEUT % 88 % (31-73); PLATELET COUNT 164 x10^3/uL (140-400); RED BLOOD COUNT 4.37 x10^6/uL (3.50-5.40); RED CELL DISTRIBUTION WIDTH 14.6 % (11.5-14.5); WHITE BLOOD COUNT 8.7 x10^3/uL (4.0-11.0)
[2018-11-09 05:57] LABS: CALCIUM 8.2 mg/dL (8.5-10.1); CREATININE 0.9 mg/dL (0.6-1.0); GFR 62.6; POTASSIUM 3.8 mmol/L (3.5-5.1)
[2018-11-09 07:00] VITALS: BP 181/77
[2018-11-09] MEDS: INSULIN LISPRO 300 UNITS/3 ML INSULN.PEN. SQ SCH ×2 (07:30→11:30)
[2018-11-09 07:31] LABS: % MONOS 2 % (0-10)
[2018-11-09 07:32] LABS: % BANDS 6 % (0-9); % LYMPHS 9 % (24-48); % SEGS 83 % (35-66); PLT ESTIMATE ADEQUATE (ADEQUATE)
[2018-11-09 07:33] LABS: POLYCHROMASIA SLIGHT
[2018-11-09] MEDS ORDERED: FUROSEMIDE 20 MG/2 ML VIAL. IVP ONE (08:00)
[2018-11-09] MEDS ORDERED: ASPI-612 PO (08:42)
[2018-11-09] MEDS ORDERED: METO-239 PO (08:42)
--- NOTE | 2018-11-09 08:47 | PDOC ---
PROGRESS NOTES Subjective Subjective Patient reports she feels better. Denies CP or SOA. Objective Objective Vital Signs Date Time Temp Pulse Resp B/P (MAP) Pulse Ox O2 Delivery O2 Flow Rate FiO2 11/09/18 07:00 97.4 60 18 181/77 (111) 95 Room Air 97.4 11/08/18 19:30 2.0 Intake and Output 11/09/18 07:00 Intake Total 1580 ml Output Total 750 ml Balance 830 ml Intake Oral 1500 ml IV Total 80 ml Output Urine Total 750 ml # Voids 3 Physical Exam Abdomen: Normal bowel sounds, Soft, No tenderness Heart: Regular rate Extremities: No edema General: Alert, Oriented X3, No acute distress Lungs: Clear to auscultation Assessment Assessment Problems Medical Problems: (1) Acute renal insufficiency Status: Acute (2) Complete heart block Status: Acute (3) Severe sinus bradycardia Status: Acute Plan Plan of Care 1. Complete heart block - patient received pacemaker yesterday and is now 100% paced on telemetry. Home later today if Cardiology is in agreement. 2. HTN - Resume home meds, including the Toprol XL she has been out of for several weeks. 3. DM2 - controlled, hold Metformin for 48 hours, continue Amaryl. Comment Review of Relevant I have reviewed the following items tanya (where applicable) has been applied. Labs Laboratory Tests Test 11/08/18 11:41 11/08/18 16:31 11/08/18 20:53 11/09/18 05:00 White Blood Count 8.1 x10^3/uL (4.0-11.0) 8.7 x10^3/uL (4.0-11.0) Red Blood Count 4.87 x10^6/uL (3.50-5.40) 4.37 x10^6/uL (3.50-5.40) Hemoglobin 13.0 g/dL (12.0-15.5) 12.1 g/dL (12.0-15.5) Hematocrit 40.9 % (36.0-47.0) 36.3 % (36.0-47.0) Mean Corpuscular Volume 84 fL (79-100) 83 fL (79-100) Mean Corpuscular Hemoglobin 27 pg (25-35) 28 pg (25-35) Mean Corpuscular Hemoglobin Concent 32 g/dL (31-37) 33 g/dL (31-37) Red Cell Distribution Width 14.7 % (11.5-14.5) 14.6 % (11.5-14.5) Platelet Count 200 x10^3/uL (140-400) 164 x10^3/uL (140-400) Neutrophils (%) (Auto) 60 % (31-73) 88 % (31-73) Lymphocytes (%) (Auto) 29 % (24-48) 9 % (24-48) Monocytes (%) (Auto) 9 % (0-9) 3 % (0-9) Eosinophils (%) (Auto) 2 % (0-3) 0 % (0-3) Basophils (%) (Auto) 1 % (0-3) 0 % (0-3) Neutrophils # (Auto) 4.9 x10^3uL (1.8-7.7) 7.6 x10^3uL (1.8-7.7) Lymphocytes # (Auto) 2.3 x10^3/uL (1.0-4.8) 0.8 x10^3/uL (1.0-4.8) Monocytes # (Auto) 0.7 x10^3/uL (0.0-1.1) 0.2 x10^3/uL (0.0-1.1) Eosinophils # (Auto) 0.1 x10^3/uL (0.0-0.7) 0.0 x10^3/uL (0.0-0.7) Basophils # (Auto) 0.0 x10^3/uL (0.0-0.2) 0.0 x10^3/uL (0.0-0.2) Prothrombin Time 15.4 SEC (11.7-14.0) Prothromb Time International Ratio 1.3 (0.8-1.1) Sodium Level 142 mmol/L (136-145) 141 mmol/L (136-145) Potassium Level 4.7 mmol/L (3.5-5.1) 3.8 mmol/L (3.5-5.1) Chloride Level 105 mmol/L (98-107) 105 mmol/L (98-107) Carbon Dioxide Level 24 mmol/L (21-32) 23 mmol/L (21-32) Anion Gap 13 (6-14) 13 (6-14) Blood Urea Nitrogen 23 mg/dL (7-20) 23 mg/dL (7-20) Creatinine 1.1 mg/dL (0.6-1.0) 0.9 mg/dL (0.6-1.0) Estimated GFR (Cockcroft-Gault) 49.7 62.6 BUN/Creatinine Ratio 21 (6-20) Glucose Level 86 mg/dL (70-99) 181 mg/dL (70-99) Calcium Level 9.0 mg/dL (8.5-10.1) 8.2 mg/dL (8.5-10.1) Magnesium Level 1.8 mg/dL (1.8-2.4) Total Bilirubin 1.0 mg/dL (0.2-1.0) Aspartate Amino Transf (AST/SGOT) 33 U/L (15-37) Alanine Aminotransferase (ALT/SGPT) 71 U/L (14-59) Alkaline Phosphatase 72 U/L (46-116) Creatine Kinase 268 U/L (26-192) Creatine Kinase MB (Mass) 8.1 ng/mL (0.0-3.6) Creatine Kinase MB Relative Index 3.0 % (0-4) Troponin I Quantitative 0.044 ng/mL (0.000-0.055) ZC-Ifx-I-Type Natriuretic Peptide 2097 pg/mL (0-124) Total Protein 6.9 g/dL (6.4-8.2) Albumin 3.7 g/dL (3.4-5.0) Albumin/Globulin Ratio 1.2 (1.0-1.7) Triglycerides Level 96 mg/dL (0-150) Cholesterol Level 108 mg/dL (0-200) LDL Cholesterol, Calculated 61 mg/dL (0-100) VLDL Cholesterol, Calculated 19 mg/dL (0-40) Non-HDL Cholesterol Calculated 80 mg/dL (0-129) HDL Cholesterol 28 mg/dL (40-60) Cholesterol/HDL Ratio 3.9 Lipase 115 U/L (73-393) Thyroid Stimulating Hormone (TSH) 2.150 uIU/mL (0.358-3.74) Glucose (Fingerstick) 138 mg/dL (70-99) 203 mg/dL (70-99) Segmented Neutrophils % 83 % (35-66) Band Neutrophils % 6 % (0-9) Lymphocytes % 9 % (24-48) Monocytes % 2 % (0-10) Platelet Estimate Adequate (ADEQUATE) Polychromasia Slight Test 11/09/18 07:16 Glucose (Fingerstick) 142 mg/dL (70-99) Laboratory Tests Test 11/08/18 11:41 11/08/18 16:31 11/08/18 20:53 11/09/18 05:00 White Blood Count 8.1 x10^3/uL (4.0-11.0) 8.7 x10^3/uL (4.0-11.0) Red Blood Count 4.87 x10^6/uL (3.50-5.40) 4.37 x10^6/uL (3.50-5.40) Hemoglobin 13.0 g/dL (12.0-15.5) 12.1 g/dL (12.0-15.5) Hematocrit 40.9 % (36.0-47.0) 36.3 % (36.0-47.0) Mean Corpuscular Volume 84 fL (79-100) 83 fL (79-100) Mean Corpuscular Hemoglobin 27 pg (25-35) 28 pg (25-35) Mean Corpuscular Hemoglobin Concent 32 g/dL (31-37) 33 g/dL (31-37) Red Cell Distribution Width 14.7 % (11.5-14.5) 14.6 % (11.5-14.5) Platelet Count 200 x10^3/uL (140-400) 164 x10^3/uL (140-400) Neutrophils (%) (Auto) 60 % (31-73) 88 % (31-73) Lymphocytes (%) (Auto) 29 % (24-48) 9 % (24-48) Monocytes (%) (Auto) 9 % (0-9) 3 % (0-9) Eosinophils (%) (Auto) 2 % (0-3) 0 % (0-3) Basophils (%) (Auto) 1 % (0-3) 0 % (0-3) Neutrophils # (Auto) 4.9 x10^3uL (1.8-7.7) 7.6 x10^3uL (1.8-7.7) Lymphocytes # (Auto) 2.3 x10^3/uL (1.0-4.8) 0.8 x10^3/uL (1.0-4.8) Monocytes # (Auto) 0.7 x10^3/uL (0.0-1.1) 0.2 x10^3/uL (0.0-1.1) Eosinophils # (Auto) 0.1 x10^3/uL (0.0-0.7) 0.0 x10^3/uL (0.0-0.7) Basophils # (Auto) 0.0 x10^3/uL (0.0-0.2) 0.0 x10^3/uL (0.0-0.2) Prothrombin Time 15.4 SEC (11.7-14.0) Prothromb Time International Ratio 1.3 (0.8-1.1) Sodium Level 142 mmol/L (136-145) 141 mmol/L (136-145) Potassium Level 4.7 mmol/L (3.5-5.1) 3.8 mmol/L (3.5-5.1) Chloride Level 105 mmol/L (98-107) 105 mmol/L (98-107) Carbon Dioxide Level 24 mmol/L (21-32) 23 mmol/L (21-32) Anion Gap 13 (6-14) 13 (6-14) Blood Urea Nitrogen 23 mg/dL (7-20) 23 mg/dL (7-20) Creatinine 1.1 mg/dL (0.6-1.0) 0.9 mg/dL (0.6-1.0) Estimated GFR (Cockcroft-Gault) 49.7 62.6 BUN/Creatinine Ratio 21 (6-20) Glucose Level 86 mg/dL (70-99) 181 mg/dL (70-99) Calcium Level 9.0 mg/dL (8.5-10.1) 8.2 mg/dL (8.5-10.1) Magnesium Level 1.8 mg/dL (1.8-2.4) Total Bilirubin 1.0 mg/dL (0.2-1.0) Aspartate Amino Transf (AST/SGOT) 33 U/L (15-37) Alanine Aminotransferase (ALT/SGPT) 71 U/L (14-59) Alkaline Phosphatase 72 U/L (46-116) Creatine Kinase 268 U/L (26-192) Creatine Kinase MB (Mass) 8.1 ng/mL (0.0-3.6) Creatine Kinase MB Relative Index 3.0 % (0-4) Troponin I Quantitative 0.044 ng/mL (0.000-0.055) FY-Szo-Z-Type Natriuretic Peptide 2097 pg/mL (0-124) Total Protein 6.9 g/dL (6.4-8.2) Albumin 3.7 g/dL (3.4-5.0) Albumin/Globulin Ratio 1.2 (1.0-1.7) Triglycerides Level 96 mg/dL (0-150) Cholesterol Level 108 mg/dL (0-200) LDL Cholesterol, Calculated 61 mg/dL (0-100) VLDL Cholesterol, Calculated 19 mg/dL (0-40) Non-HDL Cholesterol Calculated 80 mg/dL (0-129) HDL Cholesterol 28 mg/dL (40-60) Cholesterol/HDL Ratio 3.9 Lipase 115 U/L (73-393) Thyroid Stimulating Hormone (TSH) 2.150 uIU/mL (0.358-3.74) Glucose (Fingerstick) 138 mg/dL (70-99) 203 mg/dL (70-99) Segmented Neutrophils % 83 % (35-66) Band Neutrophils % 6 % (0-9) Lymphocytes % 9 % (24-48) Monocytes % 2 % (0-10) Platelet Estimate Adequate (ADEQUATE) Polychromasia Slight Test 11/09/18 07:16 Glucose (Fingerstick) 142 mg/dL (70-99) Medications Current Medications Atropine Sulfate (ATROPINE 0.5mg SYRINGE) 0.5 mg 1X ONCE IV Last administered on 11/08/18at 11:43; Start 11/08/18 at 11:45; Stop 11/08/18 at 11:49; Status DC Aspirin (Shawanda Aspirin) 325 mg 1X ONCE PO Last administered on 11/08/18at 12:18; Start 11/08/18 at 11:45; Stop 11/08/18 at 11:49; Status DC Sodium Chloride 1,000 ml @ 1,000 mls/hr 1X ONCE IV Last administered on 11/08/18at 12:19; Start 11/08/18 at 11:45; Stop 11/08/18 at 12:44; Status DC Atropine Sulfate (ATROPINE 0.5mg SYRINGE) 0.5 mg 1X ONCE IV Last administered on 11/08/18at 11:48; Start 11/08/18 at 12:00; Stop 11/08/18 at 12:01; Status DC Hydralazine HCl (Apresoline Inj) 20 mg 1X ONCE IVP Last administered on 11/08/18at 12:23; Start 11/08/18 at 12:30; Stop 11/08/18 at 12:31; Status DC Cefazolin Sodium/ Dextrose 50 ml @ 100 mls/hr 1X ONCE IV Last administered on 11/08/18at 14:33; Start 11/08/18 at 13:00; Stop 11/08/18 at 13:29; Status DC Cefazolin Sodium/ Dextrose 50 ml @ 100 mls/hr 1X ONCE IV ; Start 11/08/18 at 13:00; Stop 11/08/18 at 13:29; Status UNV Bacitracin 34768 unit/Sodium Chloride 250 ml @ 250 mls/hr 1X ONCE IRR Last administered on 11/08/18at 14:33; Start 11/08/18 at 13:30; Stop 11/08/18 at 14:29; Status DC Hydralazine HCl (Apresoline Inj) 10 mg PRN Q4HRS PRN IVP ELEVATED BP, SEE COMMENTS; Start 11/08/18 at 13:15 Midazolam HCl (Versed) 5 mg STK-MED ONCE .ROUTE ; Start 11/08/18 at 13:09; Stop 11/08/18 at 13:10; Status DC Fentanyl Citrate (Fentanyl 2ml Vial) 100 mcg STK-MED ONCE .ROUTE ; Start 11/08/18 at 13:09; Stop 11/08/18 at 13:10; Status DC Insulin Human Lispro (HumaLOG) 0-5 UNITS TIDWMEALS SQ ; Start 11/08/18 at 17:00; Status Cancel Dextrose (Dextrose 50%-Water Syringe) 12.5 gm PRN Q15MIN PRN IV SEE COMMENTS; Start 11/08/18 at 13:15; Stop 11/08/18 at 16:54; Status DC Cefazolin Sodium/ Dextrose 50 ml @ As Directed STK-MED ONCE IV ; Start 11/08/18 at 13:12; Stop 11/08/18 at 13:13; Status Cancel Methylprednisolone Sodium Succinate (SOLU-Medrol 125MG VIAL) 125 mg STK-MED ONCE .ROUTE ; Start 11/08/18 at 13:32; Stop 11/08/18 at 13:33; Status DC Lidocaine/ Epinephrine (LIDOCAINE 2%-EPI 1:100,000 multi-dose) 20 ml STK-MED ONCE .ROUTE ; Start 11/08/18 at 13:32; Stop 11/08/18 at 13:33; Status DC Midazolam HCl (Versed) 5 mg 1X ONCE IV Last administered on 11/08/18at 14:36; Start 11/08/18 at 14:30; Stop 11/08/18 at 14:31; Status DC Fentanyl Citrate (Fentanyl 2ml Vial) 100 mcg 1X ONCE IV Last administered on 11/08/18at 14:36; Start 11/08/18 at 14:30; Stop 11/08/18 at 14:31; Status DC Lidocaine/ Epinephrine (LIDOCAINE 2%-EPI 1:100,000 multi-dose) 40 ml 1X ONCE IJ Last administered on 11/08/18at 14:33; Start 11/08/18 at 14:30; Stop 11/08/18 at 14:31; Status DC Methylprednisolone Sodium Succinate (SOLU-Medrol 125MG VIAL) 125 mg 1X ONCE IV Last administered on 11/08/18at 14:36; Start 11/08/18 at 14:30; Stop 11/08/18 at 14:31; Status DC Atropine Sulfate (ATROPINE 0.5mg SYRINGE) 0.5 mg STK-MED ONCE .ROUTE ; Start 11/08/18 at 12:30; Stop 11/08/18 at 15:00; Status DC Info (No Anticoagulant Therapy) 1 ea CONT PRN PRN MC PER PROTOCOL; Start 11/08/18 at 15:15 Ondansetron HCl (Zofran) 4 mg PRN Q6HRS PRN IV NAUSEA/VOMITING; Start 11/08/18 at 15:15 Cefazolin Sodium/ Dextrose 50 ml @ 100 mls/hr 1X ONCE IV Last administered on 11/08/18at 21:12; Start 11/08/18 at 20:00; Stop 11/08/18 at 20:29; Status DC Oxycodone/ Acetaminophen (Percocet 5/325) 2 tab PRN Q4HRS PRN PO MODERATE PAIN, SEVERE PAIN; Start 11/08/18 at 15:15 Insulin Human Lispro (HumaLOG) 0-7 UNITS TIDWMEALS SQ ; Start 11/08/18 at 17:00; Stop 11/08/18 at 17:49; Status DC Dextrose (Dextrose 50%-Water Syringe) 12.5 gm PRN Q15MIN PRN IV SEE COMMENTS; Start 11/08/18 at 16:45 Glimepiride (Amaryl) 2 mg DAILY PO ; Start 11/09/18 at 09:00 Metoprolol Tartrate (Lopressor) 25 mg DAILY PO ; Start 11/09/18 at 09:00; Status UNV Non-Formulary Medication (Irbesartan/ Hydrochlorothiazide (Avalide 150-12.5 Mg Tablet)) 1 each BID PO ; Start 11/08/18 at 21:00; Status UNV Simvastatin (Zocor) 20 mg HS PO Last administered on 11/08/18at 21:12; Start 11/08/18 at 21:00 Insulin Human Lispro (HumaLOG) 0-12 UNITS QIDACHS SQ ; Start 11/08/18 at 21:00 Losartan Potassium (Cozaar) 50 mg DAILY PO ; Start 11/09/18 at 09:00 Hydrochlorothiazide (Microzide) 12.5 mg DAILY PO ; Start 11/09/18 at 09:00 Furosemide (Lasix) 20 mg 1X ONCE IVP ; Start 11/09/18 at 08:00; Stop 11/09/18 at 08:01; Status DC Active Scripts Active Aspirin Ec (Aspirin) 81 Mg Tablet.dr 1 Tab PO DAILY 30 Days Metoprolol Succinate ( Xl ) (Metoprolol Succinate) 25 Mg Tab.er.24h 1 Tab PO DAILY 30 Days Reported Simvastatin 20 Mg Tablet 20 Mg PO HS Avalide 150-12.5 Mg Tablet (Irbesartan/Hydrochlorothiazide) 1 Each Tablet 1 Each PO BID Glimepiride 2 Mg Tablet 2 Mg PO DAILY Metformin Hcl 500 Mg Tablet 1 Tab PO BID Vitals/I & O Vital Sign - Last 24 Hours 11/08/18 11/08/18 11/08/18 11/08/18 11:35 12:09 12:23 12:39 Temp 97.9 97.9 Pulse 33 40 39 38 Resp 16 B/P (MAP) 221/59 (112) 185/54 (97) 185/54 151/43 (79) Pulse Ox 96 99 99 O2 Delivery Room Air Room Air Room Air 11/08/18 11/08/18 11/08/18 11/08/18 14:36 15:15 15:30 15:45 Temp 97.8 97.8 Pulse 60 60 60 Resp 21 21 18 B/P (MAP) 160/74 (102) 161/74 (103) Pulse Ox 95 99 97 98 O2 Delivery Nasal Cannula Nasal Cannula Room Air O2 Flow Rate 2.0 2.0 11/08/18 11/08/18 11/08/18 11/08/18 16:00 16:15 16:30 17:00 Pulse 60 60 60 60 B/P (MAP) 159/74 (102) 163/77 (105) 164/77 (106) 165/79 (107) Pulse Ox 93 94 93 95 11/08/18 11/08/18 11/08/18 11/08/18 17:30 18:24 19:15 19:30 Temp 98.1 98.1 Pulse 60 60 62 Resp 20 B/P (MAP) 156/70 (98) 175/76 (109) 164/74 (104) Pulse Ox 94 94 95 O2 Delivery Room Air Nasal Cannula O2 Flow Rate 18.0 2.0 11/08/18 11/08/18 11/09/18 11/09/18 19:45 22:54 03:00 07:00 Temp 98.2 98.4 97.4 98.2 98.4 97.4 Pulse 60 60 60 60 Resp 18 18 18 B/P (MAP) 178/77 (110) 161/78 (105) 162/71 (101) 181/77 (111) Pulse Ox 95 96 95 O2 Delivery Room Air Room Air Room Air Intake and Output 11/08/18 11/08/18 11/09/18 15:00 23:00 07:00 Intake Total 580 ml 1000 ml Output Total 750 ml Balance -170 ml 1000 ml MICAH PA MD November 09, 2018 08:46
[2018-11-09] MEDS ORDERED: METOPROLOL TART IMMED RELEASE 25 MG TABLET. PO SCH (09:00)
[2018-11-09] MEDS ORDERED: hydroCHLOROthiazide 12.5 MG CAPSULE PO SCH (09:00)
[2018-11-09] MEDS ORDERED: GLIMEPIRIDE 2 MG TABLET. PO SCH (09:00)
[2018-11-09] MEDS ORDERED: LOSARTAN POTASSIUM 50 MG TABLET. PO SCH (09:00)
[2018-11-09] MEDS ORDERED: metFORMIN 500 MG TABLET PO SCH (09:00)
[2018-11-09] MEDS ORDERED: METOPROLOL SUCC 24HR ER 25 MG TAB.ER.24H. PO SCH (09:00)
--- NOTE | 2018-11-09 09:17 | RAD ---
Chest, 2 views, 11/09/2018: HISTORY: Post pacemaker insertion Comparison is made to yesterday's study. The left-sided transvenous pacing device is unchanged. The heart is mildly enlarged. The pulmonary vascularity is at the upper limits of normal. No pulmonary consolidation is seen. There is a small amount of bilateral pleural fluid. There is no evidence of pneumothorax. Moderate spurring is present in the spine. IMPRESSION: 1. Mild cardiomegaly with borderline vascular congestion. 2. Small bilateral pleural effusions. Electronically signed by: Arthur Whaley MD (11/09/2018 9:14 AM) [facility]
--- NOTE | 2018-11-09 10:30 | NUR ---
SW reviewed pt's medical chart and evaluated for potential dc needs. Pt is from home with family and was admitted for a complete heart block. Pt is currently on 2 liters of O2 and PT/OT has not been ordered. SW will continue to follow and be available for dc needs.
--- NOTE | 2018-11-09 10:51 | SSS ---
ADMIT DATE: 11/09/2018 TWENTY THREE-HOUR SUMMARY This is a combined history and physical and discharge summary. DATE OF ADMISSION: 11/08/2018. DATE OF DISCHARGE: 11/09/2018. CHIEF COMPLAINT: Elevated blood pressure and low heart rate. HISTORY OF PRESENT ILLNESS: The patient is a 68-year-old female, who presented to the Emergency Room with the above complaint. The patient reports that she had been out of her Toprol-XL for several weeks at home as she did not receive it from her mail order pharmacy. She started to check her blood pressure at home and noticed that it was quite elevated. This apparently went on for several days. She began to feel increasingly fatigued. She is an employee here at [employer], so she went to see the employee health nurse here on the day of admission, that nurse found her to have a heart rate of 30 and she was promptly sent to the Emergency Room. Cardiology was consulted and she was admitted for further care. PAST MEDICAL HISTORY: Hypertension, diabetes mellitus type 2, hyperlipidemia, sleep apnea. PAST SURGICAL HISTORY: Hysterectomy, bilateral carpal tunnel release. ALLERGIES: The patient is allergic to IODINE. HOME MEDICATIONS: Aspirin 81 mg daily, vitamin D [id number] daily, simvastatin 40 mg at bedtime, Toprol-XL 25 mg daily, Avalide 150/12.5 one daily, metformin 500 mg b.i.d., glimepiride 2 mg daily. FAMILY HISTORY: Noncontributory. SOCIAL HISTORY: The patient is . 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 She does not smoke cigarettes or drink alcohol to excess. REVIEW OF SYSTEMS: The patient denies fever or chills. She denies chest pain or palpitations. She denies cough or shortness of air. She denies abdominal pain, nausea or vomiting. She denies lower extremity edema. She has been taking her medications daily except for the metoprolol, which she has been out of. PHYSICAL EXAMINATION: GENERAL: The patient is alert and oriented x 3, sitting up at the side of bed, in no acute distress. HEENT: PERRL, EOMI, sclerae clear. Oropharynx, mucous membranes moist. NECK: Supple without lymphadenopathy. CHEST: Clear to auscultation. CARDIOVASCULAR: Regular rhythm without murmur. Permanent pacemaker is in place with surgical dressing. ABDOMEN: Soft, nontender, normoactive bowel sounds are present. EXTREMITIES: Bilateral lower extremities are without edema. HOSPITAL COURSE: The patient was taken to the cardiac catheterization lab on the day of admission. An echocardiogram showed a preserved ejection fraction of 55-60% with no significant valvular abnormalities. Dr. Victoria placed a permanent pacemaker without difficulty. The patient has remained 100% paced overnight with heart rate of 60. Her blood pressure is elevated and her home medications will be resumed this morning. She states that she feels much better. It is anticipated that she can be discharged to home later today if Cardiology is in agreement. FINAL DIAGNOSES: 1. Complete heart block. 2. Hypertension. 3. Diabetes mellitus type 2. 4. Hyperlipidemia. DISCHARGE MEDICATIONS: Remain the same as at admission except that patient is to hold the metformin for 48 hours after her pacemaker placement yesterday. She will be given a written prescription for her Toprol-XL to take daily until her mail order supply arrives. Followup is with Dr. Ng as needed. Follow up with Dr. Victoria as advised. MICAH PA MD DR: SANDEE/alec JOB#: [id number] / [id number] RACHEL
[2018-11-09 11:00] VITALS: BP 177/78
--- NOTE | 2018-11-09 11:21 | PDOC ---
AKI SINGLETON EXERCISE INSTRUCT 11/09/18 1121: CARDIO Progress Notes Date and Time Date of Service 11/09/2018 Time of Evaluation 1110 Subjective Subjective: No Chest Pain, No shortness of breath, No Palpitations Vitals Vitals Vital Signs Date Time Temp Pulse Resp B/P (MAP) Pulse Ox O2 Delivery O2 Flow Rate FiO2 11/09/18 11:00 97.4 60 18 177/78 (111) 94 Room Air 97.4 11/09/18 08:00 2.0 Weight Weight [ ] Input and Output Intake and Output Intake and Output 11/09/18 07:00 Intake Total 1580 ml Output Total 750 ml Balance 830 ml Intake Oral 1500 ml IV Total 80 ml Output Urine Total 750 ml # Voids 3 Laboratory Labs Laboratory Tests Test 11/08/18 11:41 11/08/18 16:31 11/08/18 20:53 11/09/18 05:00 White Blood Count 8.1 x10^3/uL (4.0-11.0) 8.7 x10^3/uL (4.0-11.0) Red Blood Count 4.87 x10^6/uL (3.50-5.40) 4.37 x10^6/uL (3.50-5.40) Hemoglobin 13.0 g/dL (12.0-15.5) 12.1 g/dL (12.0-15.5) Hematocrit 40.9 % (36.0-47.0) 36.3 % (36.0-47.0) Mean Corpuscular Volume 84 fL (79-100) 83 fL (79-100) Mean Corpuscular Hemoglobin 27 pg (25-35) 28 pg (25-35) Mean Corpuscular Hemoglobin Concent 32 g/dL (31-37) 33 g/dL (31-37) Red Cell Distribution Width 14.7 % (11.5-14.5) 14.6 % (11.5-14.5) Platelet Count 200 x10^3/uL (140-400) 164 x10^3/uL (140-400) Neutrophils (%) (Auto) 60 % (31-73) 88 % (31-73) Lymphocytes (%) (Auto) 29 % (24-48) 9 % (24-48) Monocytes (%) (Auto) 9 % (0-9) 3 % (0-9) Eosinophils (%) (Auto) 2 % (0-3) 0 % (0-3) Basophils (%) (Auto) 1 % (0-3) 0 % (0-3) Neutrophils # (Auto) 4.9 x10^3uL (1.8-7.7) 7.6 x10^3uL (1.8-7.7) Lymphocytes # (Auto) 2.3 x10^3/uL (1.0-4.8) 0.8 x10^3/uL (1.0-4.8) Monocytes # (Auto) 0.7 x10^3/uL (0.0-1.1) 0.2 x10^3/uL (0.0-1.1) Eosinophils # (Auto) 0.1 x10^3/uL (0.0-0.7) 0.0 x10^3/uL (0.0-0.7) Basophils # (Auto) 0.0 x10^3/uL (0.0-0.2) 0.0 x10^3/uL (0.0-0.2) Prothrombin Time 15.4 SEC (11.7-14.0) Prothromb Time International Ratio 1.3 (0.8-1.1) Sodium Level 142 mmol/L (136-145) 141 mmol/L (136-145) Potassium Level 4.7 mmol/L (3.5-5.1) 3.8 mmol/L (3.5-5.1) Chloride Level 105 mmol/L (98-107) 105 mmol/L (98-107) Carbon Dioxide Level 24 mmol/L (21-32) 23 mmol/L (21-32) Anion Gap 13 (6-14) 13 (6-14) Blood Urea Nitrogen 23 mg/dL (7-20) 23 mg/dL (7-20) Creatinine 1.1 mg/dL (0.6-1.0) 0.9 mg/dL (0.6-1.0) Estimated GFR (Cockcroft-Gault) 49.7 62.6 BUN/Creatinine Ratio 21 (6-20) Glucose Level 86 mg/dL (70-99) 181 mg/dL (70-99) Calcium Level 9.0 mg/dL (8.5-10.1) 8.2 mg/dL (8.5-10.1) Magnesium Level 1.8 mg/dL (1.8-2.4) Total Bilirubin 1.0 mg/dL (0.2-1.0) Aspartate Amino Transf (AST/SGOT) 33 U/L (15-37) Alanine Aminotransferase (ALT/SGPT) 71 U/L (14-59) Alkaline Phosphatase 72 U/L (46-116) Creatine Kinase 268 U/L (26-192) Creatine Kinase MB (Mass) 8.1 ng/mL (0.0-3.6) Creatine Kinase MB Relative Index 3.0 % (0-4) Troponin I Quantitative 0.044 ng/mL (0.000-0.055) MS-Zoa-B-Type Natriuretic Peptide 2097 pg/mL (0-124) Total Protein 6.9 g/dL (6.4-8.2) Albumin 3.7 g/dL (3.4-5.0) Albumin/Globulin Ratio 1.2 (1.0-1.7) Triglycerides Level 96 mg/dL (0-150) Cholesterol Level 108 mg/dL (0-200) LDL Cholesterol, Calculated 61 mg/dL (0-100) VLDL Cholesterol, Calculated 19 mg/dL (0-40) Non-HDL Cholesterol Calculated 80 mg/dL (0-129) HDL Cholesterol 28 mg/dL (40-60) Cholesterol/HDL Ratio 3.9 Lipase 115 U/L (73-393) Thyroid Stimulating Hormone (TSH) 2.150 uIU/mL (0.358-3.74) Glucose (Fingerstick) 138 mg/dL (70-99) 203 mg/dL (70-99) Segmented Neutrophils % 83 % (35-66) Band Neutrophils % 6 % (0-9) Lymphocytes % 9 % (24-48) Monocytes % 2 % (0-10) Platelet Estimate Adequate (ADEQUATE) Polychromasia Slight Test 11/09/18 07:16 Glucose (Fingerstick) 142 mg/dL (70-99) Physical Exam HEENT: Neck Supple W Full Motion Chest: Symmetric LUNGS: Other (diminsihed bases) Heart: RRR (Paced) Abdomen: Soft N/T Extremities: No Calf Tenderness Neurology: alert, oriented, follow commands Other Exams Left chest incision intact, no significant sweelling, small bruising, no erythema, neurovascular status to left hand intact sling in place. Assessment Assessment 1. Symptomatic high-grade AV block: S/P PPM [place], no complications, repeat interrogation normal 2. Acute diastolic CHF: due to above. EF 55% 3. Malignant hypertension: labile episode 4. DM2/HLP 5. ZAIDA: CPAP at home Recommendations 1. Follow up in 2 wks for ouwnd check 2. Continue home meds with addition of metoprolol 3. HBPM encouraged. 4. x1 lasix. 5. If no recent stress test then will consider as an outpt. 6. Post pacer education RAÚL MCCLAIN MD 11/09/18 1617: CARDIO Progress Notes Plan Plan Pt. seen and examined. Agree with above EMPLOYMENT CONSULTANT note. CXR, incision ok. Device interrogation looks good. AKI SINGLETON APRN November 09, 2018 11:21 RAÚL MCCLAIN MD November 09, 2018 16:17
--- NOTE | 2018-11-09 13:34 | NUR ---
Discharge Note: NICOLETTE PATEL Discharge instructions and discharge home medications reviewed with Patient and a copy given. All questions have been answered and understanding verbalized.
== END 2018-11-09 12:30 | disposition home or self-care (01) | DRG 242 ==
LOC: ER 11:29 → 2 SOUTH 12:30 → ER 14:03
PROVIDERS: ADMIT Family Medicine; ATTEND Family Medicine
PROC: 0JH606Z Insertion of Pacemaker, Dual Chamber into Chest Subcutaneous Tissue and Fascia, Open Approach (ICD-10-PCS; principal; 2018-11-08)
PROC: 02HK3JZ Insertion of Pacemaker Lead into Right Ventricle, Percutaneous Approach (ICD-10-PCS; 2018-11-08)
PROC: 02H63JZ Insertion of Pacemaker Lead into Right Atrium, Percutaneous Approach (ICD-10-PCS; 2018-11-08)
PROC: 4B02XSZ Measurement of Cardiac Pacemaker, External Approach (ICD-10-PCS; 2018-11-09)
DX: I44.2 Atrioventricular block, complete (principal); I50.31 Acute diastolic (congestive) heart failure; I11.0 Hypertensive heart disease with heart failure; E11.9 Type 2 diabetes mellitus without complications; E78.00 Pure hypercholesterolemia, unspecified; E78.5 Hyperlipidemia, unspecified; G47.33 Obstructive sleep apnea (adult) (pediatric); M19.90 Unspecified osteoarthritis, unspecified site; K76.0 Fatty (change of) liver, not elsewhere classified; N28.9 Disorder of kidney and ureter, unspecified; Z82.49 Family history of ischemic heart disease and other diseases of the circulatory system; Z90.710 Acquired absence of both cervix and uterus; Z88.8 Allergy status to other drugs, medicaments and biological substances; Z79.899 Other long term (current) drug therapy
CPT/HCPCS: 33208; 36415; 71045; 71046; 80048; 80053; 80061; 82553; 82962; 83690; 83735; 83880; 84443; 84484; 85007; 85025; 85610; 93005; 93306; 96374; 99152; 99153; C1785; C1898; J0360; J0461; J0696; J1815; J1940; J2250; J2930; J3010; J3490; J7030; J7050; 99291-25

== ENCOUNTER → 2019-01-23 | Outpatient (CLI) | payer OTHER ==
[~2019-01-23] MED LIST changes: +ASPI-612 PO; +METO-239 PO
--- NOTE | 2019-01-23 09:46 | RAD ---
AP and Lateral Views of the Chest 01/23/2019 12:00 AM Indication: Atrial lead displacement Comparison: Chest radiograph November 09, 2018 Findings: There is no focal consolidation or infiltrate identified. Heart size is normal. Dual-lead pacemaking device from left subclavian approach. Leads appear to be grossly stable in configuration. There is no evidence of pneumothorax or pleural effusion. No acute osseous abnormalities are identified. Impression: 1. No evidence of acute cardiopulmonary process. 2.Grossly stable configuration of a dual-lead pacemaking device. Electronically signed by: Britton Arriola MD (01/23/2019 9:43 AM) [id number]
== END | disposition home or self-care (01) ==
LOC: RAD 09:12
PROVIDERS: ATTEND Internal Medicine Cardiovascular Disease
DX: T82.120A Displacement of cardiac electrode, initial encounter (principal)
CPT/HCPCS: 71046

== ENCOUNTER → 2019-02-02 | Outpatient (CLI) | payer OTHER ==
--- NOTE | 2019-02-04 14:59 | RAD ---
DATE: 02/02/2019 9:50 AM EXAM: MAMMO CARLOS SCREENING BILATERAL HISTORY: routine screening evaluation. COMPARISON: Prior screening mammogram to 916, 09/29/2016, 01/20/18 Bilateral CC and MLO views of the breasts were performed. Bilateral breast tomosynthesis was performed in CC and MLO projections. This study was interpreted with the benefit of Computerized Aided Detection (CAD). FINDINGS: Breast Density: FATTY The Breast Parenchyma is primarily fatty replaced. Breast parenchyma level density A. Benign calcifications are present. The parenchymal pattern appears stable. No suspicious masses, microcalcifications or architectural distortion is present to suggest malignancy in either breast. The visualized axillae are unremarkable. IMPRESSION: No mammographic evidence of malignancy. BI-RADS CATEGORY: 2 BENIGN FINDING(S) RECOMMENDED FOLLOW-UP: 12M 12 MONTH FOLLOW-UP Annual screening mammography is recommended, unless clinically indicated sooner based on symptoms or change in physical exam. PQRS compliance statement: Patient information was entered into a reminder system with a target due date for the next mammogram. Mammography is a sensitive method for finding small breast cancers, but it does not detect them all and is not a substitute for careful clinical examination. A negative mammogram does not negate a clinically suspicious finding and should not result in delay in biopsying a clinically suspicious abnormality. "Our facility is accredited by the [employer] Mammography Program."
== END | disposition home or self-care (01) ==
LOC: MAMMO 09:47
PROVIDERS: ATTEND Family Medicine
DX: Z12.31 Encounter for screening mammogram for malignant neoplasm of breast (principal); N64.89 Other specified disorders of breast
CPT/HCPCS: 77063; 77067

== ENCOUNTER → 2019-12-26 | Outpatient (CLI) | payer OTHER ==
[~2019-12-26] MED LIST changes: -ASPI-612 PO; +ASPI-886 PO; -GLIM2TAB2 PO; +GLIM2TAB7 PO; +SIMV20TA18 PO; -SIMV20TA3 PO
[2019-12-26 08:43] LABS: BASO % 1 % (0-3); EOS # 0.1 x10^3/uL (0.0-0.7); EOS % 2 % (0-3); HEMATOCRIT 39.3 % (36.0-47.0); HEMOGLOBIN 13.2 g/dL (12.0-15.5); LYMPH # 2.5 x10^3/uL (1.0-4.8); LYMPH % 35 % (24-48); MEAN CORPUSCULAR HEMOGLOBIN 28 pg (25-35); MEAN CORPUSCULAR HGB CONC 34 g/dL (31-37); MEAN CORPUSCULAR VOLUME 83 fL (79-100); MONO # 0.6 x10^3/uL (0.0-1.1); MONO % 9 % (0-9); NEUT # 3.8 x10^3/uL (1.8-7.7); NEUT % 53 % (31-73); PLATELET COUNT 191 x10^3/uL (140-400); RED BLOOD COUNT 4.72 x10^6/uL (3.50-5.40); RED CELL DISTRIBUTION WIDTH 14.3 % (11.5-14.5); WHITE BLOOD COUNT 7.1 x10^3/uL (4.0-11.0)
[2019-12-26 09:21] LABS: ALBUMIN 3.6 g/dL (3.4-5.0); ALBUMIN/GLOBULIN RATIO 1.1 (1.0-1.7); CALCIUM 8.5 mg/dL (8.5-10.1); GFR 55.3; POTASSIUM 4.2 mmol/L (3.5-5.1); TOTAL BILIRUBIN 0.5 mg/dL (0.2-1.0); TOTAL PROTEIN 6.8 g/dL (6.4-8.2)
[2019-12-26 09:25] LABS: CHOLESTEROL/HDL RATIO 4.9
[2019-12-27 01:08] LABS: HEMOGLOBIN A1C 6.8 % (4.8-5.6)
== END | disposition home or self-care (01) ==
LOC: LAB 08:16
PROVIDERS: ATTEND Internal Medicine Cardiovascular Disease
DX: E78.5 Hyperlipidemia, unspecified (principal)
CPT/HCPCS: 36415; 80053; 80061; 83036; 83721; 84443; 85025

== ENCOUNTER 2020-01-16 14:23 | Emergency (ER) | payer MEDICARE, OTHER ==
[~2020-01-16] VITALS: Ht 157.5 cm; Wt 104.5 kg
[2020-01-16] MEDS ORDERED: LIDOCAINE 1% Multi-Dose 20 ML VIAL. ID ONE (15:00)
--- NOTE | 2020-01-16 15:11 | RAD ---
Examination: KNEE LEFT 3V History: Reason: LEFT KNEE PAIN / Spl. Instructions: / History: Comparison/Correlation: None Findings: Total 3 images of the left knee were obtained. Portable technique was utilized. No significant joint space narrowing. Small knee joint effusion is present. Meniscal calcifications present. Spurring involving the medial compartment is present. Proximal tibiofibular degenerative changes are present. Subcutaneous edema at the proximal knee region noted. Impression: Degenerative spurring. Proximal tibiofibular joint degenerative change. Electronically signed by: Jayme Esquivel MD (01/16/2020 3:08 PM) [facility]
--- NOTE | 2020-01-16 16:29 | PHYS DOC ---
Past Medical History Past Medical History: Diabetes-Type II, High Cholesterol, Hypertension Past Surgical History: Hysterectomy Smoking Status: Never Smoker Alcohol Use: None Drug Use: None General Adult EDM: Chief Complaint: LOWER EXTREMITY SWELLING HPI: HPI: 69-year-old female present emergency department today with left knee pain. She is had some swelling in the knee as well. This started approximately 3 days ago. She denies any recent injury. It is a moderate to severe pain intermittently worse when she walks. She denies any numbness weakness or tingli ng. She denies any rashes. Review of systems negative for numbness weakness tingling chest pain shortness of breath hip pain or ankle pain. All other review of systems negative. ED course: 69-year-old female presenting with left-sided knee pain. On arrival she is afebrile with a normal pulse. On examination she has some swelling of the left knee joint with pain with passive range of motion. There is no erythema overlying. She has a palpable pulse distally which is second cap refill. X-rays obtained which showed degenerative spurring without any acute fracture or dislocation. knee is normal temp to touch when compared to other knee. Patient is able to extend at the knee joint without difficulty. Arthrocentesis performed. Fluid sent for analysis. Cell counts showed a nucleated cell count of 143 with 1250 red blood cells. Very unlikely to be septic arthritis. Gram stain performed by her lab shows no organisms. Will discharge patient to follow-up with her PCP for further evaluation treatment and care. MRI of the knee over the next 5 to 7 days if her symptoms persist. Heart Score: Risk Factors: Risk Factors: DM, Current or recent (<one month) smoker, HTN, HLP, family history of CAD, obesity. Risk Scores: Score 0 - 3: 2.5% MACE over next 6 weeks - Discharge Home Score 4 - 6: 20.3% MACE over next 6 weeks - Admit for Clinical Observation Score 7 - 10: 72.7% MACE over next 6 weeks - Early Invasive Strategies Current Medications: Current Medications Medications (Trade) Dose Ordered Sig/Jaya Start Time Stop Time Status Last Admin Dose Admin Lidocaine HCl (Lidocaine 1% 20ml Vial) 10 ml 1X ONCE 01/16/20 15:00 01/16/20 15:01 DC 01/16/20 15:32 10 ML Allergies: Allergies: Allergies Coded Allergies Type Severity Reaction Last Updated Verified iodine Allergy Intermediate Rash 09/26/17 Yes Physical Exam: PE: Constitutional: Well developed, well nourished, no acute distress, non-toxic appearance. [] HENT: Normocephalic, atraumatic, bilateral external ears normal, oropharynx moist, no oral exudates, nose normal. [] Eyes: PERRLA, EOMI, conjunctiva normal, no discharge. [] Neck: Normal range of motion, no tenderness, supple, no stridor. [] Cardiovascular:Heart rate regular rhythm, no murmur [] Lungs & Thorax: Bilateral breath sounds clear to auscultation [] Abdomen: Bowel sounds normal, soft, no tenderness, no masses, no pulsatile masses. [] ext: left knee exam above Skin: Warm, dry, no erythema, no rash. [] Back: No tenderness, no CVA tenderness. [] Extremities: No tenderness, no cyanosis, no clubbing, ROM intact, no edema. [] Neurologic: Alert and oriented X 3, normal motor function, normal sensory function, no focal deficits noted. [] Psychologic: Affect normal, judgement normal, mood normal. [] Current Patient Data: Vital Signs: Vital Signs Date Time Temp Pulse Resp B/P (MAP) Pulse Ox O2 Delivery O2 Flow Rate FiO2 01/16/20 14:35 98.2 69 20 184/65 (104) 97 Room Air 98.2 EKG: EKG: [] Radiology/Procedures: Radiology/Procedures: [] Course & Med Decision Making: Course & Med Decision Making Pertinent Labs and Imaging studies reviewed. (See chart for details) [] Dragon Disclaimer: Dragon Disclaimer: This electronic medical record was generated, in whole or in part, using a voice recognition dictation system. Departure Departure Impression: Primary Impression: Left knee pain Disposition: 01 HOME, SELF-CARE Condition: STABLE Referrals: IZABELA MORA MD (PCP) Patient Instructions: Knee Pain Justicifation of Admission Dx: Justifications for Admission: Justification of Admission Dx: N/A Arthrocentesis Indication: knee pain and swelling Consent: Consent given by patient. Procedure: The left knee was positioned appropriately and the landmarks were identified. Local anesthesia was placed. The area was then prepped and draped in the usual sterile fashion. A needle was then introduced into the joint space . A sterile dressing was then applied to the site. The patient tolerated the procedure well. Complications: none. VAISHALI DESHPANDE MD Jan 16, 2020 16:29
[2020-01-16 17:50] LABS: BF CLARITY HAZY; BF COLOR YELLOW; BF MON % 13 %; BF PMN % 87 %; BF RBC COUNT 1250 /cmm (Not Established); BF SOURCE SYNOVIAL; BF WBC COUNT 143 /cmm (Not Established)
[2020-01-16 19:00] VITALS: BP 166/68
== END 2020-01-16 19:05 | disposition home or self-care (01) ==
LOC: ER 14:23
DX: M25.562 Pain in left knee (principal); M25.462 Effusion, left knee; E11.9 Type 2 diabetes mellitus without complications; E78.00 Pure hypercholesterolemia, unspecified; I10 Essential (primary) hypertension; Z90.710 Acquired absence of both cervix and uterus; Z88.8 Allergy status to other drugs, medicaments and biological substances
CPT/HCPCS: 20610; 73562; 82945; 84157; 87071; 87075; 89050; 89060; 99285; J3490; 87070

== ENCOUNTER → 2020-03-03 | Outpatient (CLI) | payer OTHER | END | disposition home or self-care (01) | LOC: LAB 15:21 | PROVIDERS: ATTEND Family Medicine | DX: M25.571 Pain in right ankle and joints of right foot (principal) | CPT/HCPCS: 36415; 84550 ==

== ENCOUNTER → 2020-07-10 | Outpatient (CLI) | payer OTHER ==
--- NOTE | 2020-07-11 09:21 | CARD ---
MR#: [id number] Date of Study: 07/10/2020 Ordering Physician: RAÚL MCCLAIN, Referring Physician: RAÚL MCCLAIN, Tech: Michelle Cook [facility] APPROVED REPORT EXAM: Two-dimensional and M-mode echocardiogram with Doppler and color Doppler. Other Information Quality : FairHR: 60bpm Rhythm : NSR INDICATION Complete heart block RISK FACTORS Hypertension Obesity Hyperlipidemia 2D DIMENSIONS RVDd2.9 (2.9-3.5cm)Left Atrium(2D)4.0 (1.6-4.0cm) IVSd1.3 (0.7-1.1cm)Aortic Root(2D)3.4 (2.0-3.7cm) LVDd4.3 (3.9-5.9cm)LVOT Diameter2.0 (1.8-2.4cm) PWd1.4 (0.7-1.1cm)LVDs3.0 (2.5-4.0cm) FS (%) 29.9 %SV48.5 ml LVEF(%)57.3 (>50%) Aortic Valve AoV Peak Marcell.130.9cm/sAoV VTI26.9cm AO Peak GR.6.9mmHgLVOT Peak Marcell.87.7cm/s AO Mean GR.3mmHgAVA (VMAX)2.14cm2 Mitral Valve MV E Ssdoojus92.5cm/sMV DECEL [id number] MV A Dbmpotkp71.8cm/sE/A Ratio0.8 Pulmonary Valve PV Peak Zhsqyqul67.5cm/s Tricuspid Valve TR P. Cqjfrcmz704gr/sTR Peak Gr.18mmHg Pulmonary Vein S1 Ftnfjxik18.6cm/sD2 Bvkjlgsv71.5cm/s PVa [id number] LEFT VENTRICLE The left ventricle is normal size. There is mild concentric left ventricular hypertrophy. The left ve ntricular systolic function is normal. The ejection fraction is 55%. Septal motion consistent with co nduction abnormality. Tissue Doppler imaging reveals mild left ventricular diastolic dysfunction. RIGHT VENTRICLE The right ventricle is normal size. There is normal right ventricular wall thickness. Pacer wire note d RA/RV. ATRIA The left atrium size is normal. The right atrium size is normal. The interatrial septum is intact wit h no evidence for an atrial septal defect or patent foramen ovale as noted on 2-D or Doppler imaging. AORTIC VALVE The aortic valve is calcified but opens well. Doppler and Color Flow revealed no significant aortic r egurgitation. There is no significant aortic valvular stenosis. MITRAL VALVE The mitral valve is normal in structure and function. There is no evidence of mitral valve prolapse. There is no mitral valve stenosis. Doppler and Color-flow revealed trace mitral regurgitation. TRICUSPID VALVE The tricuspid valve is normal in structure and function. Doppler and Color Flow revealed trace tricus pid regurgitation. Estimated PAP 20 mmHg. PULMONIC VALVE The pulmonary valve is normal in structure and function. Doppler and Color Flow revealed trace pulmon ic valvular regurgitation. GREAT VESSELS The aortic root is normal in size. The ascending aorta is normal in size. The IVC is normal in size a nd collapses >50% with inspiration. PERICARDIAL EFFUSION There is no evidence of significant pericardial effusion. Critical Notification Critical Value: No <Conclusion> The left ventricular systolic function is normal. The ejection fraction is 55%. Septal motion consistent with conduction abnormality. Pacer wire noted RA/RV. Tissue Doppler imaging reveals mild left ventricular diastolic dysfunction. Trace mitral regurgitation. Trace tricuspid regurgitation. Estimated PAP 20 mmHg. There is no evidence of significant pericardial effusion. Signed by : Eliceo Loco, Electronically Approved : 07/11/2020 09:20:52
== END ==
LOC: ECHO 13:57
PROVIDERS: ATTEND Internal Medicine Cardiovascular Disease
DX: I35.1 Nonrheumatic aortic (valve) insufficiency (principal); I11.9 Hypertensive heart disease without heart failure
CPT/HCPCS: 93306

== ENCOUNTER → 2020-10-29 | Outpatient (CLI) | payer OTHER ==
--- NOTE | 2020-10-29 16:17 | RAD ---
INDICATION: 70 years of age asymptomatic female patient presents for screening mammography. TECHNIQUE: Full field craniocaudal and mediolateral oblique images of both breasts were obtained usi ng digital technique with tomosynthesis and also analyzed with computer-aided detection software. COMPARISON: 01/12/2018, 02/02/2019, 09/29/2016. BREAST COMPOSITION: Category B: There are scattered fibroglandular densities. FINDINGS: The parenchymal pattern appears stable. No suspicious masses, microcalcifications or architectural distortion is present to suggest malignanc y in either breast. Multiple benign type well-circumscribed masses are again seen bilaterally The visualized axillae are unremarkable. IMPRESSION: No mammographic evidence of malignancy. RECOMMENDATION: Annual screening mammography is recommended, unless clinically indicated sooner based on symptoms or change in physical exam. BIRADS 2: BENIGN This study was interpreted with the benefit of Computerized Aided Detection (CAD). Patient information is entered into the reminder system with a target due date for the next screening mammogram. Mammography is the most sensitive method for finding small breast cancers, but it does not detect the m all and is not a substitute for careful clinical examination. A negative mammogram does not negate a clinically suspicious finding and should not result in delay in biopsying a clinically suspicious a bnormality. "Our facility is accredited by the [employer] Mammography Program." Electronically signed by: Lester No MD (10/29/2020 4:14 PM) [facility]
== END ==
LOC: MAMMO 10:28
PROVIDERS: ATTEND Family Medicine
DX: Z12.31 Encounter for screening mammogram for malignant neoplasm of breast (principal)
CPT/HCPCS: 77063; 77067

== ENCOUNTER → 2021-01-20 | Outpatient (CLI) | payer OTHER ==
[2021-01-20 08:22] LABS: BASO % 1 % (0-3); EOS # 0.2 x10^3/uL (0.0-0.7); EOS % 3 % (0-3); HEMATOCRIT 37.2 % (36.0-47.0); HEMOGLOBIN 12.4 g/dL (12.0-15.5); LYMPH # 1.8 x10^3/uL (1.0-4.8); LYMPH % 29 % (24-48); MEAN CORPUSCULAR HEMOGLOBIN 28 pg (25-35); MEAN CORPUSCULAR HGB CONC 33 g/dL (31-37); MEAN CORPUSCULAR VOLUME 84 fL (79-100); MONO # 0.5 x10^3/uL (0.0-1.1); MONO % 8 % (0-9); NEUT # 3.9 x10^3/uL (1.8-7.7); NEUT % 60 % (31-73); PLATELET COUNT 210 x10^3/uL (140-400); RED BLOOD COUNT 4.44 x10^6/uL (3.50-5.40); RED CELL DISTRIBUTION WIDTH 14.3 % (11.5-14.5); WHITE BLOOD COUNT 6.5 x10^3/uL (4.0-11.0)
[2021-01-20 08:48] LABS: ALBUMIN 3.5 g/dL (3.4-5.0); ALBUMIN/GLOBULIN RATIO 1.1 (1.0-1.7); CALCIUM 8.3 mg/dL (8.5-10.1); CREATININE 0.9 mg/dL (0.6-1.0); GFR 62.3; POTASSIUM 4.2 mmol/L (3.5-5.1); TOTAL BILIRUBIN 0.5 mg/dL (0.2-1.0); TOTAL PROTEIN 6.7 g/dL (6.4-8.2)
[2021-01-20 08:49] LABS: CHOLESTEROL/HDL RATIO 4.3
[2021-01-21 00:17] LABS: HEMOGLOBIN A1C 7.7 % (4.8-5.6)
== END ==
LOC: LAB 07:56
PROVIDERS: ATTEND Nurse Practitioner Gerontology
DX: I10 Essential (primary) hypertension (principal); E11.9 Type 2 diabetes mellitus without complications; E78.5 Hyperlipidemia, unspecified
CPT/HCPCS: 36415; 80053; 80061; 83036; 83721; 85025

== ENCOUNTER → 2021-08-24 | Outpatient (CLI) | payer OTHER ==
[2021-08-24 10:13] LABS: GFR 55.1; POTASSIUM 4.4 mmol/L (3.5-5.1)
[2021-08-25 00:12] LABS: HEMOGLOBIN A1C 7.5 % (4.8-5.6)
== END ==
LOC: LAB 09:43
PROVIDERS: ATTEND Family Medicine
DX: I10 Essential (primary) hypertension (principal); E11.9 Type 2 diabetes mellitus without complications
CPT/HCPCS: 36415; 80048; 83036

== ENCOUNTER 2021-09-11 11:53 | Emergency (ER) | payer OTHER ==
[~2021-09-11] VITALS: Ht 157.5 cm; Wt 86.3 kg
[2021-09-11] MEDS ORDERED: KETOROLAC 30 MG/ML VIAL. IM ONE (13:00)
--- NOTE | 2021-09-11 13:00 | RAD ---
EXAM: XR ELBOW COMPLETE_LEFT 3+VIEWS 09/11/2021 12:44 PM CLINICAL INDICATION: Pain, erythema, swelling COMPARISON: None TECHNIQUE: 3 views of the left elbow FINDINGS: No acute fracture or malalignment. Joint spaces are maintained. Mild medial epicondylosis. There is bulky enthesopathy and dystrophic calcifications at the olecranon process. Mild posterior s oft tissue swelling. Probable small joint effusion. IMPRESSION: 1. No acute osseous abnormality. 2. Bulky enthesopathy a dystrophic calcifications at the olecranon process. 3. Mild posterior soft tissue swelling and probable small joint effusion. Electronically signed by: Lisa Munguia MD (09/11/2021 12:58 PM) [id number]
[2021-09-11 13:12] LABS: BASO # 0.1 x10^3/uL (0.0-0.2); BASO % 1 % (0-3); EOS # 0.1 x10^3/uL (0.0-0.7); EOS % 1 % (0-3); HEMATOCRIT 39.9 % (36.0-47.0); HEMOGLOBIN 13.1 g/dL (12.0-15.5); LYMPH % 21 % (24-48); MEAN CORPUSCULAR HEMOGLOBIN 27 pg (25-35); MEAN CORPUSCULAR HGB CONC 33 g/dL (31-37); MEAN CORPUSCULAR VOLUME 82 fL (79-100); MONO # 0.9 x10^3/uL (0.0-1.1); MONO % 9 % (0-9); NEUT # 6.5 x10^3/uL (1.8-7.7); NEUT % 68 % (31-73); PLATELET COUNT 175 x10^3/uL (140-400); RED BLOOD COUNT 4.85 x10^6/uL (3.50-5.40); RED CELL DISTRIBUTION WIDTH 14.7 % (11.5-14.5); WHITE BLOOD COUNT 9.6 x10^3/uL (4.0-11.0)
[2021-09-11 13:23] LABS: CALCIUM 8.7 mg/dL (8.5-10.1); CREATININE 0.9 mg/dL (0.6-1.0); GFR 62.3; POTASSIUM 3.7 mmol/L (3.5-5.1)
[2021-09-11 13:29] LABS: ALBUMIN 3.8 g/dL (3.4-5.0); ALBUMIN/GLOBULIN RATIO 1.1 (1.0-1.7); MAGNESIUM 1.7 mg/dL (1.8-2.4); TOTAL PROTEIN 7.4 g/dL (6.4-8.2); URIC ACID 7.3 mg/dL (2.6-6.0)
[2021-09-11 13:40] LABS: C-REACTIVE PROTEIN 73.5 mg/L (0-3.3)
[2021-09-11] MEDS ORDERED: CEPHALEXIN 250 MG CAPSULE. PO STA (14:20)
[2021-09-11] MEDS ORDERED: IBUP-1007 PO (14:26)
[2021-09-11] MEDS ORDERED: CEPH500T PO (14:26)
[2021-09-11] MEDS ORDERED: SULF1TAB24 PO (14:26)
--- NOTE | 2021-09-11 14:26 | PHYS DOC ---
Past Medical History Past Medical History: Diabetes-Type II, High Cholesterol, Hypertension Past Surgical History: Hysterectomy Smoking Status: Never Smoker Alcohol Use: None Drug Use: None General Adult EDM: Chief Complaint: UPPER EXTREMITY PAIN HPI: HPI: Patient is a 70-year-old female who presents to the emergency department complaining of left elbow pain for the past several months to over a year. 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 Patient reports over the past 7 days she has noticed her left elbow become increasingly more painful, noticed that it feels hot to touch. Patient denies swelling, numbness or tingling to her extremity, denies injury to this extremity. Denies chest pains, chest or nasal congestion, denies shortness of breath or chest palpitations. Denies recent fever or chills. Patient does report a history of gout arthritis and arthritic problems however reports her gout usually manifests in her thumbs and wrists and not her elbow. Patient reports good pain relief when taking ibuprofen however has not taken any medication today for her pain or discomfort. Patient reports she took 2 [id number] tablets of ibuprofen yesterday at approximately noon and noted her pain went from a 10 out of 10 down to a 2 out of 10. Patient is asking for a work excuse. Patient denies other physical complaints or physical concerns. Review of Systems: Review of Systems: 14 body systems of review of systems have been reviewed. See HPI for pertinent positives and negative responses, otherwise all other systems are negative, nonpertinent or noncontributory. Constitutional: Negative except as outlined in HPI above. Skin: Negative except as outlined in HPI above. Eyes: Negative except as outlined in HPI above. HENT: Negative except as outlined in HPI above. Respiratory: Negative except as outlined in HPI above. Cardiovascular: Negative except as outlined in HPI above. GI: Negative except as outlined in HPI above. : Negative except as outlined in HPI above. Musculoskeletal: Negative except as outlined in HPI above. Integument: Negative except as outlined in HPI above. Neurologic: Negative except as outlined in HPI above. Endocrine: Negative except as outlined in HPI above. Lymphatic: Negative except as outlined in HPI above. Psychiatric: Negative except as outlined in HPI above. Heart Score: C/O Chest Pain: No Risk Factors: Risk Factors: DM, Current or recent (<one month) smoker, HTN, HLP, family history of CAD, obesity. Risk Scores: Score 0 - 3: 2.5% MACE over next 6 weeks - Discharge Home Score 4 - 6: 20.3% MACE over next 6 weeks - Admit for Clinical Observation Score 7 - 10: 72.7% MACE over next 6 weeks - Early Invasive Strategies Current Medications: Current Medications Medications (Trade) Dose Ordered Sig/Jaya Start Time Stop Time Status Last Admin Dose Admin Cephalexin HCl (Keflex) 500 mg 1X STAT 09/11/21 14:18 09/11/21 14:19 UNV Ketorolac Tromethamine (Toradol 30mg Vial) 30 mg 1X ONCE 09/11/21 13:00 09/11/21 13:01 DC 09/11/21 13:00 30 MG Trimethoprim/ Sulfamethoxazole (Bactrim Ds) 1 tab 1X ONCE 09/11/21 14:30 09/11/21 14:31 UNV Allergies: Allergies: Allergies Coded Allergies Type Severity Reaction Last Updated Verified iodine Allergy Intermediate Rash 09/26/17 Yes Physical Exam: PE: Constitutional: Well developed, well nourished, no acute distress, non-toxic appearance. 70-year-old female in no apparent distress. HENT: Normocephalic, atraumatic. Eyes: Conjunctiva normal, no discharge. Neck: Normal range of motion, no stridor. Cardiovascular: No cyanosis appreciated, distal cap refill less than 2 seconds. Lungs & Thorax: Patient is in no respiratory distress, no audible adventitious lung sounds appreciated. Abdomen: Nontender, no abnormalities noted. Skin: Warm, dry, no erythema, no rash. See extremity note for focused skin examination Back: No tenderness, no deformities. Extremities: No tenderness, no cyanosis, no clubbing, ROM intact, no edema. Pain to the left elbow with erythema around the posterior skin surfaces, the skin is intact, erythema is light pink to darker pink with poorly demarcated borders, there is no lymphangitis appreciated. There is full passive range of motion, limited active range of motion related to pain, distal cap refill is less than 2 and equal bilaterally, 2+ radial pulses equal bilateral. The skin is very warm to touch. No abscesses or purulent drainage from skin or weeping from skin appreciated. No pain to palpation at the left axilla. Neurologic: Alert and oriented X 3, normal motor function, normal sensory function, no focal deficits noted. Psychologic: Affect normal, judgement normal, mood normal. Current Patient Data: Labs: Laboratory Tests Test 09/11/21 12:56 White Blood Count 9.6 x10^3/uL (4.0-11.0) Red Blood Count 4.85 x10^6/uL (3.50-5.40) Hemoglobin 13.1 g/dL (12.0-15.5) Hematocrit 39.9 % (36.0-47.0) Mean Corpuscular Volume 82 fL (79-100) Mean Corpuscular Hemoglobin 27 pg (25-35) Mean Corpuscular Hemoglobin Concent 33 g/dL (31-37) Red Cell Distribution Width 14.7 % (11.5-14.5) H Platelet Count 175 x10^3/uL (140-400) Neutrophils (%) (Auto) 68 % (31-73) Lymphocytes (%) (Auto) 21 % (24-48) L Monocytes (%) (Auto) 9 % (0-9) Eosinophils (%) (Auto) 1 % (0-3) Basophils (%) (Auto) 1 % (0-3) Neutrophils # (Auto) 6.5 x10^3/uL (1.8-7.7) Lymphocytes # (Auto) 2.0 x10^3/uL (1.0-4.8) Monocytes # (Auto) 0.9 x10^3/uL (0.0-1.1) Eosinophils # (Auto) 0.1 x10^3/uL (0.0-0.7) Basophils # (Auto) 0.1 x10^3/uL (0.0-0.2) Erythrocyte Sedimentation Rate 25 (0-25) Sodium Level 140 mmol/L (136-145) Potassium Level 3.7 mmol/L (3.5-5.1) Chloride Level 101 mmol/L (98-107) Carbon Dioxide Level 28 mmol/L (21-32) Anion Gap 11 (6-14) Blood Urea Nitrogen 15 mg/dL (7-20) Creatinine 0.9 mg/dL (0.6-1.0) Estimated GFR (Cockcroft-Gault) 62.3 BUN/Creatinine Ratio 17 (6-20) Glucose Level 111 mg/dL (70-99) H Uric Acid 7.3 mg/dL (2.6-6.0) H Calcium Level 8.7 mg/dL (8.5-10.1) Magnesium Level 1.7 mg/dL (1.8-2.4) L Total Bilirubin 1.0 mg/dL (0.2-1.0) Aspartate Amino Transferase (AST) 16 U/L (15-37) Alanine Aminotransferase (ALT) 36 U/L (14-59) Alkaline Phosphatase 85 U/L (46-116) C-Reactive Protein, Quantitative 73.5 mg/L (0-3.3) H Total Protein 7.4 g/dL (6.4-8.2) Albumin 3.8 g/dL (3.4-5.0) Albumin/Globulin Ratio 1.1 (1.0-1.7) Laboratory Tests 09/11/21 12:56 Laboratory Tests 09/11/21 12:56 Vital Signs: Vital Signs Date Time Temp Pulse Resp B/P (MAP) Pulse Ox O2 Delivery O2 Flow Rate FiO2 09/11/21 11:54 98.1 78 18 186/90 (122) 98 Room Air 98.1 EKG: EKG: [] Radiology/Procedures: Radiology/Procedures: REASON: Pain, erythematous, swelling PROCEDURE: ELBOW LEFT 3V EXAM: XR ELBOW COMPLETE_LEFT 3+VIEWS 09/11/2021 12:44 PM CLINICAL INDICATION: Pain, erythema, swelling COMPARISON: None TECHNIQUE: 3 views of the left elbow FINDINGS: No acute fracture or malalignment. Joint spaces are maintained. Mild medial epicondylosis. There is bulky enthesopathy and dystrophic calcifications at the olecranon process. Mild posterior soft tissue swelling. Probable small joint effusion. IMPRESSION: 1. No acute osseous abnormality. 2. Bulky enthesopathy a dystrophic calcifications at the olecranon process. 3. Mild posterior soft tissue swelling and probable small joint effusion. Electronically signed by: Lisa Munguia MD (09/11/2021 12:58 PM) [id number] Course & Med Decision Making: Course & Med Decision Making Pertinent Labs and Imaging studies reviewed. (See chart for details) 70-year-old female, vital signs reviewed, presents emerged from concerning left elbow pain with redness and warmth of the skin. Physical examination concerning for gout versus cellulitis versus other circulating joint process. Will order CRP, sed rate, uric acid level, 3 view left elbow, saline lock, CBC, CMP, mag level, IV pain medication. The patient's x-ray is nonconcerning for infectious process. There is no si gnificant joint effusion. The patient's uric acid level is elevated, ED attending physician Dr. Spaulding did examine patient at bedside, recommended prophylactic treatment for cellulitis. Will also prescribe NSAID therapy for concern of gouty arthritis flareup. Discussed findings with patient, antibiotic therapy and side effects, return to ER precautions and concerns were reviewed, strict follow-up with primary care physician Dr. Brooks this Monday for reevaluation. Patient gave verbal understanding of and is amenable to ED discharge planning. upon reevaluation of patients left elbow pain, patient can help actively extend and flex elbow without significant pain, reports her pain is less than a 1 at this time. Discussed with the patient all findings and diagnostic testing as well as the need to follow-up with their primary care provider for further evaluation and treatment or return to the ED if any new or worsening symptoms. Strict return precautions were also discussed at length, the patient voiced understanding and agreement with the discharge planning. The patient was nontoxic in appearance, in no apparent distress, and hemodynamically stable at the time of disposition. Dragon Disclaimer: Dragvíctor Disclaimer: This electronic medical record was generated, in whole or in part, using a voice recognition dictation system. Departure Departure Impression: Primary Impression: Cellulitis of left upper extremity Disposition: HOME / SELF CARE / HOMELESS Condition: GOOD Referrals: Harsh BROOKS MD (PCP) Patient Instructions: Cellulitis Additional Instructions: You were seen today in the emergency department for pain and inflammation to your left elbow. An x-ray was performed that is reassuring and that there is no broken bones or signs of infection of your bone. However you do have inflamed reddened skin in the elbow joint is very painful to move. I am prescribing you an antibiotic regimen, please take both antibiotics as directed until complete. Also I am prescribing ibuprofen, please take as directed for elbow pain. Please follow-up with your primary care physician Dr. Brooks this week, call Monday for an appointment. Return to the emergency department for worsening symptoms or other concerns. Thank you for visiting our Emergency Department. It was a pleasure taking care of you today in the emergency department and we appreciate you trusting us with your care. If any additional problems come up don't hesitate to return to visit us. Please follow up with your primary care provider so they can plan additional care if needed and know about the problem that you had. If symptoms worsen come back to the Emergency Department. Any concerning symptoms that start such as chest pain, shortness of air, weakness or numbness on one side of the body, running high fevers or any other concerning symptoms return to the ER. Scripts Ibuprofen (IBUPROFEN) 600 Mg Tablet 600 MG PO PRN Q6HRS PRN for INFLAMMATION, #120 TAB 0 Refills Prov: IZABELA MARTIN APRN 09/11/21 Sulfamethoxazole/Trimethoprim (BACTRIM DS TABLET) 1 Each Tablet 1 TAB PO BID for skin infection for 10 Days, #20 TAB 0 Refills Prov: IZABELA MARTIN APRN 09/11/21 Cephalexin (CEPHALEXIN) 500 Mg Tablet 1 TAB PO QID for skin infection, #40 TAB 0 Refills Prov: IZABELA MARTIN APRN 09/11/21 IZABELA MARTIN APRN Sep 11, 2021 14:26
[2021-09-11] MEDS ORDERED: SMZ/TMP 800/160MG TABLET. PO ONE (14:30)
[2021-09-11 14:40] VITALS: BP 179/90
== END 2021-09-11 14:40 | disposition home or self-care (01) ==
LOC: ER 11:53
DX: L03.114 Cellulitis of left upper limb (principal); E11.9 Type 2 diabetes mellitus without complications; E78.00 Pure hypercholesterolemia, unspecified; I10 Essential (primary) hypertension
CPT/HCPCS: 36415; 73080; 80053; 83735; 84550; 85025; 85651; 86140; 96372; 99284; J1885

== ENCOUNTER 2021-09-29 16:23 | Emergency (ER) | payer OTHER ==
[~2021-09-29] VITALS: Ht 157.5 cm; Wt 110.0 kg
[~2021-09-29 16:23] MED LIST changes: +CEPH500T PO; +IBUP-1007 PO; +SULF1TAB24 PO
[2021-09-29 16:35] VITALS: BP 174/90
[2021-09-29 17:07] LABS: BASO # 0.1 x10^3/uL (0.0-0.2); BASO % 1 % (0-3); CALCIUM 8.3 mg/dL (8.5-10.1); EOS # 0.1 x10^3/uL (0.0-0.7); EOS % 1 % (0-3); HEMATOCRIT 36.6 % (36.0-47.0); HEMOGLOBIN 12.1 g/dL (12.0-15.5); LYMPH # 2.1 x10^3/uL (1.0-4.8); LYMPH % 21 % (24-48); MEAN CORPUSCULAR HEMOGLOBIN 27 pg (25-35); MEAN CORPUSCULAR HGB CONC 33 g/dL (31-37); MEAN CORPUSCULAR VOLUME 82 fL (79-100); MONO # 1.1 x10^3/uL (0.0-1.1); MONO % 10 % (0-9); NEUT # 6.9 x10^3/uL (1.8-7.7); NEUT % 67 % (31-73); PLATELET COUNT 186 x10^3/uL (140-400); POTASSIUM 4.1 mmol/L (3.5-5.1); RED BLOOD COUNT 4.48 x10^6/uL (3.50-5.40); WHITE BLOOD COUNT 10.2 x10^3/uL (4.0-11.0)
--- NOTE | 2021-09-29 17:10 | RAD ---
Study: XR FOOT_RIGHT 3 VIEWS Indication: Pain at the great toe MTP joint. Comparison: None. Findings: Moderate arthrosis at the great toe MTP joint. Surrounding soft tissue prominence. On the oblique vie w there is a first metatarsal head marginal erosion with a thin sclerotic rim. No aggressive periosti tis or erosion about the rest of the foot. Scattered arthrosis elsewhere. Prominent plantar calcaneal spur. Enthesopathy at the Achilles insertion. Exostosis at the posterior/dorsal calcaneus. Generaliz ed soft tissue edema. Impression: 1. Findings at the great toe MTP joint which could be related to gout on a background of moderate art hrosis. Correlate for any known history of gout. 2. Scattered degenerative changes elsewhere, to include the Achilles insertion and plantar fascia ruba gin, as well as nonspecific generalized soft tissue edema. Electronically signed by: ADAM YAO MD (09/29/2021 5:07 PM) [facility]
--- NOTE | 2021-09-29 17:43 | PHYS DOC ---
Past Medical History Past Medical History: Diabetes-Type II, High Cholesterol, Hypertension Past Surgical History: No Surgical History Smoking Status: Never Smoker Alcohol Use: None Drug Use: None General Adult EDM: Chief Complaint: FOOT INJURY PAIN HPI: HPI: Patient is a 71 year old female with history of diabetes type 2, hypertension, high cholesterol, presenting today complaining of a burning 9 out of 10 right great toe pain, symptoms have been going on intermittently for 2 weeks. Patient states symptoms got worse today. Patient denies any injuries. Denies anything relieving the pain but states weightbearing exacerbates the pain no anything touching the toe exacerbates the pain. Review of Systems: Review of Systems: Constitutional: Denies fever or chills. [] Musculoskeletal: Reports right great toe pain Integument: Denies rash. [] Neurologic: Denies headache, focal weakness or sensory changes. [] Psychiatric: Denies depression or anxiety. [] Heart Score: C/O Chest Pain: N/A Risk Factors: Risk Factors: DM, Current or recent (<one month) smoker, HTN, HLP, family history of CAD, obesity. Risk Scores: Score 0 - 3: 2.5% MACE over next 6 weeks - Discharge Home Score 4 - 6: 20.3% MACE over next 6 weeks - Admit for Clinical Observation Score 7 - 10: 72.7% MACE over next 6 weeks - Early Invasive Strategies Current Medications: Current Medications Medications (Trade) Dose Ordered Sig/Jaya Start Time Stop Time Status Last Admin Dose Admin Acetaminophen/ Hydrocodone Bitart (Lortab 5/325) 1 tab 1X ONCE 09/29/21 18:00 09/29/21 18:01 Colchicine (Colcrys) 1.2 mg 1X ONCE 09/29/21 18:00 09/29/21 18:01 Prednisone (Prednisone) 60 mg 1X ONCE 09/29/21 18:00 09/29/21 18:01 Allergies: Allergies: Allergies Coded Allergies Type Severity Reaction Last Updated Verified iodine Allergy Intermediate Rash 09/26/17 Yes Physical Exam: PE: Constitutional: Well developed, well nourished, no acute distress, non-toxic appearance. [] Skin: Warm, dry, no erythema, no rash. [] Back: No tenderness, no CVA tenderness. [] Extremities: Right great toe MTP joint with soft tissue swelling and mild erythema. Tenderness over the region. Range of motion is intact to the right foot and toes. +2 right pedal pulse. Cap refill less than 2 seconds to right toes. Neurologic: Alert and oriented X 3, normal motor function, normal sensory function, no focal deficits noted. [] Psychologic: Affect normal, judgement normal, mood normal. [] Current Patient Data: Labs: Laboratory Tests Test 09/29/21 16:48 White Blood Count 10.2 x10^3/uL (4.0-11.0) Red Blood Count 4.48 x10^6/uL (3.50-5.40) Hemoglobin 12.1 g/dL (12.0-15.5) Hematocrit 36.6 % (36.0-47.0) Mean Corpuscular Volume 82 fL (79-100) Mean Corpuscular Hemoglobin 27 pg (25-35) Mean Corpuscular Hemoglobin Concent 33 g/dL (31-37) Red Cell Distribution Width 15.0 % (11.5-14.5) H Platelet Count 186 x10^3/uL (140-400) Neutrophils (%) (Auto) 67 % (31-73) Lymphocytes (%) (Auto) 21 % (24-48) L Monocytes (%) (Auto) 10 % (0-9) H Eosinophils (%) (Auto) 1 % (0-3) Basophils (%) (Auto) 1 % (0-3) Neutrophils # (Auto) 6.9 x10^3/uL (1.8-7.7) Lymphocytes # (Auto) 2.1 x10^3/uL (1.0-4.8) Monocytes # (Auto) 1.1 x10^3/uL (0.0-1.1) Eosinophils # (Auto) 0.1 x10^3/uL (0.0-0.7) Basophils # (Auto) 0.1 x10^3/uL (0.0-0.2) Sodium Level 142 mmol/L (136-145) Potassium Level 4.1 mmol/L (3.5-5.1) Chloride Level 104 mmol/L (98-107) Carbon Dioxide Level 27 mmol/L (21-32) Anion Gap 11 (6-14) Blood Urea Nitrogen 16 mg/dL (7-20) Creatinine 1.0 mg/dL (0.6-1.0) Estimated GFR (Cockcroft-Gault) 55.0 Glucose Level 144 mg/dL (70-99) H Uric Acid 8.0 mg/dL (2.6-6.0) H Calcium Level 8.3 mg/dL (8.5-10.1) L Laboratory Tests 09/29/21 16:48 Laboratory Tests 09/29/21 16:48 Vital Signs: Vital Signs Date Time Temp Pulse Resp B/P (MAP) Pulse Ox O2 Delivery O2 Flow Rate FiO2 09/29/21 16:35 98.5 74 16 174/90 (118) 98 Room Air 98.5 EKG: EKG: [] Radiology/Procedures: Radiology/Procedures: []PROCEDURE: FOOT RIGHT 3V Study: XR FOOT_RIGHT 3 VIEWS Indication: Pain at the great toe MTP joint. Comparison: None. Findings: Moderate arthrosis at the great toe MTP joint. Surrounding soft tissue prominence. On the oblique view there is a first metatarsal head marginal erosion with a thin sclerotic rim. No aggressive periostitis or erosion about the rest of the foot. Scattered arthrosis elsewhere. Prominent plantar calcaneal spur. Enthesopathy at the Achilles insertion. Exostosis at the posterior/dorsal calcaneus. Generalized soft tissue edema. Impression: 1. Findings at the great toe MTP joint which could be related to gout on a ba ckground of moderate arthrosis. Correlate for any known history of gout. 2. Scattered degenerative changes elsewhere, to include the Achilles insertion and plantar fascia origin, as well as nonspecific generalized soft tissue edema. Electronically signed by: ADAM YAO MD (09/29/2021 5:07 PM) [facility] DICTATED and SIGNED BY: ADAM YAO MD DATE: 09/29/21 7561 Course & Med Decision Making: Course & Med Decision Making Pertinent Labs and Imaging studies reviewed. (See chart for details) This a 71-year-old female patient presented to the ED today complaining of right great toe pain that began 2 weeks ago. CBC with a normal WBC, uric acid 8.0, BUN and creatinine are normal. Right foot x-rays interpreted by radiologist- findings at the great toe MTP joint which could be related to gout on a background of moderate arthrosis. Correlate for any known history of gout. Scattered degenerative changes elsewh ere, to include the Achilles insertion and plantar fascia origin, as well as nonspecific generalized soft tissue edema. Given colchine first dose in the ED Rx for second dose to be taken in an hour. Also discharged with prednisone and a very short supply of hydrocodone follow- up with Ortho and PCP in 1 week Debbie Disclaimer: Debbie Disclaimer: This electronic medical record was generated, in whole or in part, using a voice recognition dictation system. Departure Departure Impression: Primary Impression: Gout attack Qualified Codes: M10.9 - Gout, unspecified Additional Impression: Degenerative joint disease of foot, right Qualified Codes: M19.071 - Primary osteoarthritis, right ankle and foot Disposition: HOME / SELF CARE / HOMELESS Condition: STABLE Referrals: Harsh CHANG MD (PCP) follow up in one week GAIL KEARNS MD follow up in one week Patient Instructions: Arthritis, Degenerative-Brief, Gout, [id number] Additional Instructions: You were evaluated in the emergency room and noted to have gout and arthritis to the right foot. Take the prescribed medications as ordered. Follow-up with your primary care doctor and the provided orthopedic doctor in the next 7 days Scripts Hydrocodone Bit/Acetaminophen (HYDROCODONE-APAP 5-325 ) 1 Tab Tablet 1 TAB PO PRN Q6HRS PRN for PAIN, #10 TAB 0 Refills Prov: MICHEAL GILMORE APRN 09/29/21 Prednisone (PREDNISONE) 50 Mg Tablet 1 TAB PO DAILY, #5 TAB Prov: MICHEAL GILMORE APRN 09/29/21 Colchicine (COLCRYS) 0.6 Mg Tablet 0.6 MG PO 1X, #1 TAB Take it as soon as you get home Prov: MICHEAL GLIMORE APRN 09/29/21 MICHEAL GILMORE APRN Sep 29, 2021 17:43
[2021-09-29] MEDS ORDERED: COLC0.6T34 PO (18:00)
[2021-09-29] MEDS ORDERED: PRED50TA PO (18:00)
[2021-09-29] MEDS ORDERED: HYDR-2761 PO (18:00)
[2021-09-29] MEDS ORDERED: HYDROcodone/APAP 5/325MG 1 TAB TABLET PO ONE (18:00)
[2021-09-29] MEDS ORDERED: COLCHICINE 0.6 MG TABLET PO ONE (18:00)
[2021-09-29] MEDS ORDERED: predniSONE 20 MG TABLET PO ONE (18:00)
== END 2021-09-29 18:23 | disposition home or self-care (01) ==
LOC: ER 16:23
DX: M10.9 Gout, unspecified (principal); M19.071 Primary osteoarthritis, right ankle and foot; E11.9 Type 2 diabetes mellitus without complications; E78.00 Pure hypercholesterolemia, unspecified; I10 Essential (primary) hypertension; Z88.8 Allergy status to other drugs, medicaments and biological substances
CPT/HCPCS: 36415; 73630; 80048; 84550; 85025; 99284; J7512